=== PATIENT | male | born 1945 | race Caucasian/White ===

== ENCOUNTER 2020-11-11 10:08 | Inpatient (IN) ==
--- OUTSIDE RECORDS SUMMARY | 2020-11-11 10:11 | External Medical Summary | Continuity of Care Document ---
:1945 Author Name Domo Meng Address Unavailable Unavailable , Care Team Providers Name Role Phone Unavailable Unavailable Unavailable Carol Meng Unavailable [email or web address] PCP, UNKNOWN Unavailable Unavailable Unavailable Unavailable Unavailable Problems Glaucoma (365.9) (H40.9) Obesity (278.00) (E66.9) Asthma (493.90) (J45.909) Benign essential hypertension (401.1) (I10) Encounter for long-term (current) use of medications (V58.69 ) (Z79.899) Edema (782.3) (R60.9) Mixed hyperlipidemia (272.2) (E78.2) Abnormal glucose (790.29) (R73.09) Extrinsic asthma (493.00) (J45.909) Flank pain (789.09) (R10.9) Upper respiratory infection (465.9) (J06.9) Allergies and Adverse Reactions No Known Allergies (Allergy) Medications Metoprolol Tartrate 25 MG Oral Tablet; TAKE ONE TABLET BY MOUTH TWICE A DAY [facility] Start: 14-May-2012 Quantity: 60 Refills: 5 Triamterene-HCTZ 37.5-25 MG Oral Tablet; TAKE ONE-HALF TABLET BY MOUTH EVERY DAY [facility] Start: 14-May-2012 Quantity: 15 Refills: 6 Atorvastatin Calcium 20 MG Oral Tablet; TAKE ONE TABLET BY MOUTH EVERY EVENING FOR HIGH CHOLESTEROL [facility] Start: 14-May-2012 Quantity: 30 Refills: 5 Advair Diskus 100-50 MCG/DOSE Inhalation Aerosol Powder Breath Activated; INHALE ONE PUFF BY MOUTH TWICE A DAY [facility] Start: 14-May-2012 Quantity: 60 Refills: 5 Combivent Respimat 20-100 MCG/ACT Inhala tion Aerosol Solution; ONE INHALATION 4 TIMES DAILY (MAX OF 6 INHALATIONS PER 24 HOURS) [facility] Start: 21-Apr-2013 Quantity: 1 4 GM Inhaler Refills: 5 Procedures History of Knee Surgery Status: Complete d Immunizations Pneumococcal polysaccharide vaccine, 23 valent On: 2011 Influenza On: 03-Sep-2012 9:53 Lot #: [id number], [employer] PA[employer]UR Td On: 2012 Influenza On: 01-Jul-2013 10:32 Lot #: [id number], [employer]OFI PA[employer]UR Social History - Smoking Status Never smoked tobacco Plan of Treatment Planned Observations Planned Goals not documented Results No Known Results Results not documented
--- OUTSIDE RECORDS SUMMARY | 2020-11-11 10:11 | External Medical Summary | Continuity of Care Document ---
:1945 Author Name Domo Meng Address Unavailable Unavailable , Care Team Providers Name Role Phone Unavailable Unavailable Unavailable Carol Meng Unavailable [email or web address] PCP, UNKNOWN Unavailable Unavailable Unavailable Unavailable Unavailable Problems Upper respiratory infection (465.9) (J06.9) Extrinsic asthma (493.00) (J45.909) Abnormal glucose (790.29) (R73.09) Mixed hyperlipidemia (272.2) (E78.2) Asthma (493.90) (J45.909) Obesity (278.00) (E66.9) Glaucoma (365.9) (H40.9) Edema (782.3) (R60.9) Flank pain (789.09) (R10.9) Encounter for long-term (current) use of medications (V58.69 ) (Z79.899) Benign essential hypertension (401.1) (I10) Allergies and Adverse Reactions No Known Allergies (Allergy) Medications Atorvastatin Calcium 20 MG Oral Tablet; TAKE [...] [facility] Start: 14-May-2012 Quantity: 15 Refills: 6 Combivent Respimat 20-100 MCG/ACT Inhala tion Aerosol Solution; ONE INHALATION 4 TIMES DAILY (MAX OF 6 INHALATIONS PER 24 HOURS) [facility] Start: 21-Apr-2013 Quantity: 1 4 GM Inhaler Refills: 5 Metoprolol Tartrate 25 MG Oral Tablet; TAKE ONE TABLET BY MOUTH TWICE A DAY [facility] Start: 14-May-2012 Quantity: 60 Refills: 5 Procedures History of Knee Surgery Status: Complete d Immunizations Pneumococcal polysaccharide vaccine, 23 valent On: 2011 Influenza On: 03-Sep-2012 9:53 Lot #: [id number], SANOFI PASTEUR Td On: 2012 Influenza On: 01-Jul-2013 10:32 Lot #: [id number], SANOFI PA[employer]UR Social History - Smoking Status Never smoked tobacco Plan of Treatment Planned Observations Planned Goals not documented Results No Known Results Results not documented
[2020-11-11] MEDS ORDERED: GLUCAGON FOR INJ 1 MG VIAL ONE ×2 (10:30→10:31)
[2020-11-11] MEDS ORDERED: GLUCAGON 2 MG in SYRINGE 0 ML IV STA (10:31)
--- NOTE | 2020-11-11 10:37 | Emergency Department Note ---
History of Present Illness General Chief complaint: Arrhythmia/Palpitations Stated complaint: HEART RATE DOWN DIZZY Source: patient Mode of arrival: ambulatory Limitations: no limitations History of Present Illness Provider complaint: dizziness Onset (ago): day(s) 2 Associated symptoms: + malaise This is a 75-year-old male presents the emergency department complaining of dizziness and low heart rate. Patient states he first noticed he felt dizzy and more easily fatigued 2 days ago when he was cleaning the snow off of his car. Patient states he felt initially it could be related to his sugar so he checked his sugar at home and it was normal. Patient states over the last 2 days he has been trying to rest, still eating and drinking normally taking his usual medications however his symptoms have persisted. States his symptoms are worse with standing and with ambulation. Patient denies any falls or any syncopal events. Patient denies any recent illness or known sick contact. Patient denies any coming chest pain, palpitations, trouble breathing, nausea, vomiting, abdominal pain. Patient denies any recent change in bowel or bladder function. Patient states he does not routinely follow with cardiology, has never been told he had a heart attack or congestive heart failure. Patient states he does take medication for blood pressure and on review of his list he is using metoprolol among other agents. Patient states he did take all of his usual medications as prescribed this morning including a dose of his metoprolol. Patient denies ever being told his heart rate was slow or even irregular. Patient states he has had prior EKGs as performed with his PCP as an outpatient. Pt seen during a time of high acuity and national emergency pandemic while wearing PPE. Home Medications Medication Instructions Recorded Confirmed Type atorvastatin [Lipitor] 40 mg PO HS 10/04/18 11/11/20 History losartan 25 mg PO QAM 10/04/18 11/11/20 History metformin 500 mg PO BID 10/04/18 11/11/20 History metoprolol tartrate [Lopressor] 25 mg PO BID 10/04/18 11/11/20 History tamsulosin [Flomax] 0.4 mg PO HS 10/04/18 11/11/20 History Panax, Barbadian [id number] 1 cap PO Q2D 11/11/20 11/11/20 History [Ginseng Complex] calcium carbonate [Calcium 500] 0 mg PO HS 11/11/20 11/11/20 History hydrochlorothiazide 25 mg PO QAM 11/11/20 11/11/20 History latanoprost 1 drp OPB HS 11/11/20 11/11/20 History Allergies Allergy/AdvReac Type Severity Reaction Status Date / Time No Known Allergies Allergy Verified 11/11/20 11:43 Past Med/Surg History Medical History BPH (benign prostatic hyperplasia) Diabetes Dyslipidemia Hypertension Morbid obesity Surgical History H/O inguinal hernia repair Family History Mother Coronary heart disease Social History Smoking Status: Former smoker Tobacco Type: Cigarettes Hx Alcohol Use: Yes Alcohol type: beer Hx Substance Use: No Preferred Language: Kittitian Communication Ability: Effective Court Commissioner Required: No Beliefs That Will Affect Care: None Current Living Situation: Spouse Feels Safe at Home: Yes Assistive Devices: Cane Review of Systems See HPI for pertinent positives & negatives. and A total of 10 systems reviewed and were otherwise negative Physical Exam Vital Signs Vital Signs - 24 hr 11/11/20 10:14 11/11/20 10:25 11/11/20 10:30 Temperature 37.0 C Temperature Source Skin Pulse Rate 37 L 34 L 39 L Respiratory Rate 20 17 21 Respiratory Effort / Characteristics Non-Labored Spontaneous Respiratory Depth Normal Respiratory Pattern Regular Blood Pressure 130/58 L 145/73 H Blood Pressure Mean 82 97 Pulse Oximetry 96 Oxygen Delivery Method Room Air Sepsis Recent Fever Within 48 Hours No Sepsis New/Unexplained Change in Mental Status N/A Sepsis Action Taken by Nursing No Action Required 11/11/20 10:31 11/11/20 10:33 Temperature Temperature Source Pulse Rate 38 L Respiratory Rate 18 Respiratory Effort / Characteristics Respiratory Depth Respiratory Pattern Blood Pressure Blood Pressure Mean Pulse Oximetry 94 Oxygen Delivery Method Room Air Sepsis Recent Fever Within 48 Hours Sepsis New/Unexplained Change in Mental Status Sepsis Action Taken by Nursing GENERAL: alert, well appearing, well nourished, no distress, non-toxic, morbid obesity EYE EXAM: normal conjunctiva, PERRL and EOM's grossly intact OROPHARYNX: no exudate, no erythema, lips, buccal mucosa, and tongue normal and mucous membranes are moist NECK: supple, no nuchal rigidity, no adenopathy, non-tender LUNGS: Clear to auscultation. Normal chest wall mechanics, no w/r/r HEART: no murmurs, S1 normal and S2 normal ABDOMEN: abdomen soft, non-tender, normo-active bowel sounds, no masses, no rebound or guarding. BACK: Back is symmetrical on inspection and there is no deformity, no midline tenderness, no CVA tenderness. SKIN: no rashes and no bruising UPPER EXTREMITIES: upper extremities are grossly normal. FROM, nml pulses b/l. LOWER EXTREMITIES: Trace pitting edema. FROM, nml pulses b/l. NEURO EXAM: Normal sensorium, cranial nerves II-XII grossly intact, normal speech, no gross weakness of arms, no gross weakness of legs. Gross sensation intact. Course Course 1022: HR 30's, BP stable. Pacer pads in place, glucagon given, IVF hung. 1032: Case discussed with cardiology, Dr. Gabriel. 1035: Patient updated on plan at this time. HR 41, BP stable. No change after glucagon. 1040: Discussed with [facility], Dr. Olivo. 1048: Pt re-checked. No change. Administered Medications Atorvastatin Calcium (Atorvastatin 40 Mg Tab) 40 mg PO HS LEONORA Stop: 12/11/20 20:59 Last Admin: 11/11/20 21:35 Dose: 40 mg Documented by: [id number] Heparin Sodium (Porcine) (Heparin Sod 5,000 Unit/0.5 Ml Vial) 7,500 units SQ Q12 LEONORA Stop: 12/11/20 20:59 Last Admin: 11/12/20 08:17 Dose: 7,500 units Documented by: [id number] Admin: 11/11/20 21:36 Dose: 7,500 units Documented by: [id number] Lactated Ringer's (Lr) 1,000 mls @ 15 mls/hr IV .Q24H LEONORA Stop: 11/14/20 08:54 Last Admin: 11/12/20 13:30 Dose: Not Given Documented by: [id number] Admin: 11/11/20 16:29 Dose: Not Given Documented by: [id number] Insulin Aspart (Insulin Aspart 100 Units/Ml 3 Ml Pen) 0 units SC ACHS [facility] Stop: 12/11/20 16:29 Last Admin: 11/12/20 16:31 Dose: Not Given Documented by: [id number] Admin: 11/12/20 12:19 Dose: Not Given Documented by: [id number] Admin: 11/12/20 07:35 Dose: Not Given Documented by: [id number] Admin: 11/11/20 21:34 Dose: Not Given Documented by: [id number] Cosigned by: [id number] Admin: 11/11/20 17:09 Dose: Not Given Documented by: [id number] Magnesium Oxide (Magnesium Oxide 400 Mg Tab) 400 mg PO QAM [facility] Stop: 12/12/20 13:44 Last Admin: 11/12/20 14:48 Dose: 400 mg Documented by: [id number] Tamsulosin HCl (Tamsulosin Hcl 0.4 Mg Cap) 0.4 mg PO HS [facility] Stop: 12/11/20 20:59 Last Admin: 11/11/20 21:35 Dose: 0.4 mg Documented by: [id number] Discontinued Medications Bacitracin (Bacitracin Inj 50,000 Unit Vial) Confirm Administered Dose 50,000 units .ROUTE .STK-MED ONE Stop: 11/11/20 14:03 Last Admin: 11/11/20 14:30 Dose: 50,000 units Documented by: [id number] Bacitracin (Bacitracin Oint 0.9 Gm Pkt) Confirm Administered Dose 1 appln .ROUTE .STK-MED ONE Stop: 11/11/20 16:12 Last Admin: 11/11/20 16:29 Dose: Not Given Documented by: [id number] Cefazolin Sodium (Cefazolin 250 Mg/Ml 1 Gm Vial) Confirm Administered Dose 3,000 mg .ROUTE .STK-MED ONE Stop: 11/11/20 13:55 Last Admin: 11/11/20 14:30 Dose: 3,000 mg Documented by: [id number] Cefazolin Sodium (Cefazolin 250 Mg/Ml 1 Gm Vial) 2,000 mg IV PREOP@1430 [facility]; Protocol Stop: 11/11/20 23:59 Last Admin: 11/11/20 16:29 Dose: Not Given Documented by: [id number] Fentanyl Citrate (Fentanyl Citrate 100 Mcg/2 Ml Vial) Confirm Administered Dose 100 mcg .ROUTE .STK-MED ONE Stop: 11/11/20 13:54 Last Admin: 11/11/20 16:08 Dose: 100 mcg Documented by: [id number] Fentanyl Citrate (Fentanyl Citrate 100 Mcg/2 Ml Vial) Confirm Administered Dose 100 mcg .[address] .[facility] ONE Stop: 11/11/20 15:27 Last Increment: 11/11/20 16:09 Dose: 50 mcg Documented by: [id number] Furosemide (Furosemide 40 Mg/4 Ml Vial) 40 mg IV 1345 ONE Stop: 11/11/20 13:46 Last Admin: 11/11/20 17:09 Dose: 40 mg Documented by: [id number] Furosemide (Furosemide 40 Mg/4 Ml Vial) Confirm Administered Dose [address] ONE Stop: 11/11/20 17:05 Last Admin: 11/11/20 17:14 Dose: Not Given Documented by: [id number] Furosemide (Furosemide 40 Mg/4 Ml Vial) Confirm Administered Dose [address] ONE Stop: 11/12/20 13:46 Last Admin: 11/12/20 13:49 Dose: 40 mg Documented by: [id number] Glucagon (Glucagon For Inj 1 Mg Vial) Confirm Administered Dose 1 mg .ROUTE .[facility] ONE Stop: 11/11/20 10:31 Last Admin: 11/11/20 10:32 Dose: 1 mg Documented by: [id number] Glucagon (Glucagon For Inj 1 Mg Vial) Confirm Administered Dose 1 mg .ROUTE .[facility] ONE Stop: 11/11/20 10:32 Last Admin: 11/11/20 10:32 Dose: 1 mg Documented by: [id number] Glucagon 2 mg/ Syringe 2 mls @ 1 mls/min IV NOW STA Stop: 11/11/20 10:32 Last Admin: 11/11/20 10:37 Dose: Not Given Documented by: [id number] Furosemide 40 mg/ Syringe 4 mls @ 4 mls/min IV ONE ONE Stop: 11/12/20 14:16 Last Admin: 11/12/20 13:49 Dose: Not Given Documented by: [id number] Lidocaine HCl (Lidocaine Hcl 1% 20 Ml Vial) Confirm Administered Dose 40 ml .ROUTE .[facility] ONE Stop: 11/11/20 14:02 Last Admin: 11/11/20 14:30 Dose: 40 ml Documented by: [id number] Midazolam HCl (Midazolam Hcl 5 Mg/Ml 1 Ml Vial) Confirm Administered Dose 5 mg .ROUTE .STK-MED ONE Stop: 11/11/20 13:54 Last Increment: 11/11/20 16:08 Dose: 2 mg Documented by: [id number] Potassium Chloride (Potassium Chloride Crtab 20 Meq Tabcr) 40 meq PO NOW STA Stop: 11/12/20 13:38 Last Admin: 11/12/20 14:48 Dose: 40 meq Documented by: [id number] Critical Care Time Critical Care Time: Yes Total Critical Care Time: 35 Critical care of 35 min performed to assess and manage high likelihood of life- threatening dysrhythmia, involving labs and imaging performed with assessment to evaluate dysrhythmia diagnosis with frequent reassessment. This time includes bedside time, treatment discussions with patient/family/consultants, documentation time and excludes procedure time. Medical Decision Making Differential Diagnosis Differential diagnosis includes etiologies such as benign positional vertigo, dehydration, hypovolemia, anemia, tumor, infection, hypoglycemia, electrolyte abnormalities, cardiac sources, intracerebral event, toxicologic, neurologic, as well as others were entertained. Medical Records Attestation: I reviewed the patient's medical records. Home Medications Current Medication List: was personally reviewed by me Laboratory Data Attestation: I reviewed the patient's lab results. Result diagrams: 11/11/20 10:27 11/12/20 06:35 Lab Results 11/11/20 11/11/20 11/11/20 Range/Units 10:27 10:27 10:27 WBC 8.06 (4.8-10.8) K/uL RBC 5.19 (4.7-6.1) M/uL Hgb 15.6 (14.0-18.0) g/dL Hct 46.6 (42-52) % MCV 89.8 (80-100) fL MCH 30.1 (25-34) pg MCHC 33.5 (32-36) g/dL RDW Std Deviation 50.2 H (36.4-46.3) fL RDW Coeff of Palak 15.2 H (11.5-14.5) % Plt Count 185 (130-400) K/uL MPV 10.8 H (7.4-10.4) fL Immature Gran % (Auto) 0.2 % Neut % (Auto) 52.6 % Lymph % (Auto) 37.8 % Cocke % (Auto) 8.4 % Eos % (Auto) 0.9 % Baso % (Auto) 0.1 % Neut # (Auto) 4.23 (1.4-6.5) K/uL Lymph # (Auto) 3.05 (1.2-3.4) K/uL Cocke # (Auto) 0.68 H (0.11-0.59) K/uL Eos # (Auto) 0.07 (0-0.5) K/uL Baso # (Auto) 0.01 (0-0.2) K/uL Immature Gran # (Auto) 0.02 (0.00-0.02) K/uL PT 10.6 (9.0-12.0) Seconds INR 1.0 (0.9-1.1) Sodium 140 (136-145) mmol/L Potassium 3.7 (3.5-5.1) mmol/L Chloride 104 (98-107) mmol/L Carbon Dioxide 31 (21-32) mmol/L Anion Gap 5.0 (3-11) BUN 21 H (7-18) mg/dl Creatinine 1.29 (0.6-1.4) mg/dl Est Cr Clr Drug Dosing 70.1 ml/min Est GFR ( Amer) 62.0 Est GFR (Non-Af Amer) 53.5 BUN/Creatinine Ratio 16.5 (10-20) Glucose 158 H (70-99) mg/dl POC Glucose (70-99) mg/dl Calcium 8.9 (8.5-10.1) mg/dl Magnesium 2.1 (1.8-2.4) mg/dl Total Bilirubin 0.9 (0.2-1) mg/dl AST 16 (15-37) U/L ALT 39 (12-78) U/L Alkaline Phosphatase 65 (45-117) U/L Troponin I 0.016 (0-0.045) ng/ml NT-Pro-B Natriuret Pep 595 (0-1800) pg/ml Total Protein 7.4 (6.4-8.2) gm/dl Albumin 3.6 (3.4-5.0) gm/dl Globulin 3.8 (2.5-4.0) gm/dl Albumin/Globulin Ratio 0.9 (0.9-2) Lipase 70 L (73-393) U/L TSH 2.290 (0.300-4.500) uIu/ml Lyme Disease IgG Ab (Negative) Lyme Disease IgM Ab (Negative) COVID-19 Eval Order SARS-CoV-2, RNA, NAAT (NEGATIVE) 11/11/20 11/11/20 11/11/20 Range/Units 10:27 10:31 10:40 WBC (4.8-10.8) K/uL RBC (4.7-6.1) M/uL Hgb (14.0-18.0) g/dL Hct (42-52) % MCV (80-100) fL MCH (25-34) pg MCHC (32-36) g/dL RDW Std Deviation (36.4-46.3) fL RDW Coeff of Palak (11.5-14.5) % Plt Count (130-400) K/uL MPV (7.4-10.4) fL Immature Gran % (Auto) % Neut % (Auto) % Lymph % (Auto) % Cocke % (Auto) % Eos % (Auto) % Baso % (Auto) % Neut # (Auto) (1.4-6.5) K/uL Lymph # (Auto) (1.2-3.4) K/uL Cocke # (Auto) (0.11-0.59) K/uL Eos # (Auto) (0-0.5) K/uL Baso # (Auto) (0-0.2) K/uL Immature Gran # (Auto) (0.00-0.02) K/uL PT (9.0-12.0) Seconds INR (0.9-1.1) Sodium (136-145) mmol/L Potassium (3.5-5.1) mmol/L Chloride (98-107) mmol/L Carbon Dioxide (21-32) mmol/L Anion Gap (3-11) BUN (7-18) mg/dl Creatinine (0.6-1.4) mg/dl Est Cr Clr Drug Dosing ml/min Est GFR ( Amer) Est GFR (Non-Af Amer) BUN/Creatinine Ratio (10-20) Glucose (70-99) mg/dl POC Glucose 149 H (70-99) mg/dl Calcium (8.5-10.1) mg/dl Magnesium (1.8-2.4) mg/dl Total Bilirubin (0.2-1) mg/dl AST (15-37) U/L ALT (12-78) U/L Alkaline Phosphatase (45-117) U/L Troponin I (0-0.045) ng/ml NT-Pro-B Natriuret Pep (0-1800) pg/ml Total Protein (6.4-8.2) gm/dl Albumin (3.4-5.0) gm/dl Globulin (2.5-4.0) gm/dl Albumin/Globulin Ratio (0.9-2) Lipase (73-393) U/L TSH (0.300-4.500) uIu/ml Lyme Disease IgG Ab Negative (Negative) Lyme Disease IgM Ab Negative (Negative) COVID[facility] SARS-CoV-2, RNA, NAAT (NEGATIVE) 11/11/20 Range/Units 10:40 WBC (4.8-10.8) K/uL RBC (4.7-6.1) M/uL Hgb (14.0-18.0) g/dL Hct (42-52) % MCV (80-100) fL MCH (25-34) pg MCHC (32-36) g/dL RDW Std Deviation (36.4-46.3) fL RDW Coeff of Palak (11.5-14.5) % Plt Count (130-400) K/uL MPV (7.4-10.4) fL Immature Gran % (Auto) % Neut % (Auto) % Lymph % (Auto) % Cocke % (Auto) % Eos % (Auto) % Baso % (Auto) % Neut # (Auto) (1.4-6.5) K/uL Lymph # (Auto) (1.2-3.4) K/uL Cocke # (Auto) (0.11-0.59) K/uL Eos # (Auto) (0-0.5) K/uL Baso # (Auto) (0-0.2) K/uL Immature Gran # (Auto) (0.00-0.02) K/uL PT (9.0-12.0) Seconds INR (0.9-1.1) Sodium (136-145) mmol/L Potassium (3.5-5.1) mmol/L Chloride (98-107) mmol/L Carbon Dioxide (21-32) mmol/L Anion Gap (3-11) BUN (7-18) mg/dl Creatinine (0.6-1.4) mg/dl Est Cr Clr Drug Dosing ml/min Est GFR ( Amer) Est GFR (Non-Af Amer) BUN/Creatinine Ratio (10-20) Glucose (70-99) mg/dl POC Glucose (70-99) mg/dl Calcium (8.5-10.1) mg/dl Magnesium (1.8-2.4) mg/dl Total Bilirubin (0.2-1) mg/dl AST (15-37) U/L ALT (12-78) U/L Alkaline Phosphatase (45-117) U/L Troponin I (0-0.045) ng/ml NT-Pro-B Natriuret Pep (0-1800) pg/ml Total Protein (6.4-8.2) gm/dl Albumin (3.4-5.0) gm/dl Globulin (2.5-4.0) gm/dl Albumin/Globulin Ratio (0.9-2) Lipase (73-393) U/L TSH (0.300-4.500) uIu/ml Lyme Disease IgG Ab (Negative) Lyme Disease IgM Ab (Negative) COVID-19 Eval Order SARS-CoV-2, RNA, NAAT NEGATIVE (NEGATIVE) Imaging Data Radiologist's Impression: XR chest 1V portable CLINICAL HISTORY: dizzy, bradycardic COMPARISON STUDY: Chest radiograph November 27, 2011. FINDINGS: Lung volumes are normal. There is no pneumothorax or pleural effusion. There are mild bibasilar opacities. Cardiomegaly is noted without evidence for pulmonary edema. There is no lobar consolidation. IMPRESSION: 1. Mild bibasilar opacities which may reflect atelectasis or an infectious process. Radiographic follow-up is recommended. 2. Moderate cardiomegaly. ACT 112: Negative or not required by law. Electronically signed by: Kevin Arreguin M.D. 11/11/2020 10:58 AM ECG Data Attestation: I personally reviewed and interpreted this ECG as follows: Indication: + other (dizziness) Rate (beats per minute): 39 Rhythm: + other ECG Intervals/blocks: + Complete heart block, + IVCD and + Prolonged QT ECG [place]: + Normal ECG ST segments: + Nonspecific ST abnormalities MDM Narrative This is a 75 yo male who presents due to increased CARRILLO and fatigue over the last 2-3 days. Pt found to have a HR in the 30's on arrival and was immediately placed in a room. IV was started, pacer pads placed on the patient, IVF hung, EKG performed which showed complete heart block. During my initial assessment of the patient we discussed meds and due to use of metoprolol, glucagon immediately called for as well. BP remained stable despite HR in the 30's and pt stated he was less symptomatic at rest. Labs sent including tsh and lyme. Pt with multiple risk factors for heart disease, however no known cardiac history. Case immediately discussed with personal banker cardiology for additional e valuation. Pt rechecked multiple times as a precaution due to unstable nature of his condition and risk of deterioration. Pt continued to have a stable BP while in the ER. Case discussed with hospitalist for additional evaluation. I do not suspect occult infectious etiology. Labs otherwise reassuring. No improvement in HR with glucagon. An order was placed for continuous cardiac monitoring. The monitor shows a rate of _40_ with _complete heart block__ rhythm. Impression & Plan CARRILLO (dyspnea on exertion), Morbid obesity, Symptomatic bradycardia, Complete heart block by electrocardiogram Discharge Plan Visit Data Chief Complaint: Arrhythmia/Palpitations Stated Complaint: HEART RATE DOWN DIZZY ED Provider: Jyoti Kim Discharge Problem: CARRILLO (dyspnea on exertion), Morbid obesity, Symptomatic bradycardia, Complete heart block by electrocardiogram Patient Disposition: Admitted As Inpatient Discharge Instructions Interventions: ED Discharge Assessment Last Done: 11/11/20 13:04
[2020-11-11 10:46] LABS: Basophils # (auto) 0.01 K/uL (0-0.2); Basophils % (auto) 0.1 %; Eosinophils # (auto) 0.07 K/uL (0-0.5); Eosinophils % (auto) 0.9 %; Hematocrit (blood only) 46.6 % (42-52); Hemoglobin 15.6 g/dL (14.0-18.0); Immature Granulocytes # (auto) 0.02 K/uL (0.00-0.02); Immature Granulocytes % (auto) 0.2 %; Lymphocytes # (auto) 3.05 K/uL (1.2-3.4); Lymphocytes % (auto) 37.8 %; Mean Corpuscular Hemoglobin 30.1 pg (25-34); Mean Corpuscular Hgb Conc 33.5 g/dL (32-36); Mean Corpuscular Volume 89.8 fL (80-100); Mean Platelet Volume 10.8 fL (7.4-10.4); Monocytes # (auto) 0.68 K/uL (0.11-0.59); Monocytes % (auto) 8.4 %; Neutrophils # (auto) 4.23 K/uL (1.4-6.5); Neutrophils % (auto) 52.6 %; Platelet Count 185 K/uL (130-400); RDW Coefficient of Variation 15.2 % (11.5-14.5); RDW Standard Deviation 50.2 fL (36.4-46.3); Red Blood Count 5.19 M/uL (4.7-6.1); White Blood Count 8.06 K/uL (4.8-10.8)
[2020-11-11 10:55] LABS: Prothrombin Time 10.6 Seconds (9.0-12.0)
[2020-11-11 10:56] LABS: Albumin Level 3.6 gm/dl (3.4-5.0); BUN Creatinine Ratio 16.5 (10-20); Calcium 8.9 mg/dl (8.5-10.1); Creatinine Clr Calc Pharmacy 70.1 ml/min; Est GFR (Non-African American) 53.5; Magnesium 2.1 mg/dl (1.8-2.4); Potassium 3.7 mmol/L (3.5-5.1)
--- NOTE | 2020-11-11 10:59 | XRay Report ---
XR chest 1V portable CLINICAL HISTORY: dizzy, bradycardic COMPARISON STUDY: Chest radiograph November 27, 2011. FINDINGS: Lung volumes are normal. There is no pneumothorax or pleural effusion. There are mild bibas ilar opacities. Cardiomegaly is noted without evidence for pulmonary edema. There is no lobar consoli dation. IMPRESSION: 1. Mild bibasilar opacities which may reflect atelectasis or an infectious process. Radiographic foll ow-up is recommended. 2. Moderate cardiomegaly. ACT 112: Negative or not required by law. Electronically signed by: Kevin Arreguin M.D. 11/11/2020 10:58 AM
[2020-11-11 11:07] LABS: Albumin Globulin Ratio 0.9 (0.9-2); Bilirubin,Total 0.9 mg/dl (0.2-1); Globulin 3.8 gm/dl (2.5-4.0); Thyroid Stimulating Hormone 2.29 uIu/ml (0.300-4.500); Total Protein 7.4 gm/dl (6.4-8.2); Troponin I 0.016 ng/ml (0-0.045)
--- NOTE | 2020-11-11 11:17 | History & Physical Report ---
Date of Service November 11, 2020 Assessment & Plan (1) Symptomatic bradycardia: Symptomatic bradycardia of undetermined etiology. On admission currently Lyme TSH are pending. Glucagon did not help. We will hold his beta-jacques at this time. Electrophysiology be consulted. He will be on a monitored setting. Chest x-ray is some suggestion of possible pulmonary vascular congestion. We will give him a dose of Lasix and obtain an echocardiogram. (2) Hypertension: Patient typically takes losartan and Lopressor. His antihypertensives will be held on admission and if need be will add back his losartan. His losartan is likely also for secondary diabetic nephropathy protection (3) Diabetes: Typically only taking Metformin. He will be on a carbohydrate conservative diet Metformin will be held and insulin sliding scale will be initiated (4) Dyslipidemia: Atorvastatin is continued for dyslipidemia management (5) Morbid obesity: Patient has morbid obesity this likely will affect his comorbid risk factors (6) BPH (benign prostatic hyperplasia): Remains on Flomax (7) DVT prophylaxis: DVT prevention will be heparin therapy in hopes that its half-life will be short enough if he would need an invasive procedure this can be held History of Present Illness Primary Care Provider: Chi Soriano MD 75-year-old male typically following the [place] [facility] who presents with shortness of breath for last few days first noticed when he was cleaning his vehicle. Was not associate with any chest pain or pressure. Patient states he is finally sit still's but he is worsened when he moves about patient has had no recent medical changes but does take a beta-jacques. Patient has no known history of Lyme disease and has been tested 3 times in the past through the various tick bites. Patient states that he does have a tendency to retain fluid and is noted of late that he has may have more swelling to his lower extremities. Says he does take a water pill although this is not listed on his med reconciliation. Currently the emergency department his blood pressure stable his heart rate is in the 30s he was given glucagon in his attempt to reverse the beta-jacques but he did not have any effect on increasing his heart rate Allergies Allergy/AdvReac Type Severity Reaction Status Date / Time No Known Allergies Allergy Verified 10/04/18 14:10 Home Medications Medication Instructions Recorded Confirmed Type atorvastatin [Lipitor] 40 mg PO HS 10/04/18 10/04/18 History hydrocodone-acetaminophen [Morton] 1 tab PO Q4H PRN #15 tab 10/04/18 Rx losartan 12.5 mg PO DAILY 10/04/18 10/04/18 History metformin 500 mg PO BID 10/04/18 10/04/18 History metoprolol tartrate [Lopressor] 25 mg PO BID 10/04/18 10/04/18 History tamsulosin [Flomax] 0.4 mg PO HS 10/04/18 10/04/18 History tramadol 50 mg PO Q6H PRN #14 tab 10/04/18 Rx Past Med/Surg History Medical History (Updated 11/11/20 @ 11:16 by Miller Olivo MD) BPH (benign prostatic hyperplasia) Diabetes Dyslipidemia Hypertension Morbid obesity Surgical History (Updated 11/11/20 @ 11:11 by Miller Olivo MD) H/O inguinal hernia repair Family History (Updated 11/11/20 @ 11:11 by Miller Olivo MD) Mother Coronary heart disease Social History Smoking Status: Former smoker Tobacco Type: Cigarettes Feels Safe at Home: Yes Review of Systems Review of Systems: Mild distress and fatigue particularly dyspnea on exertion no headache, blurry or double vision no speech or swallowing issues no chest pain, pressure or palpitations Exertional shortness of breath, with no cough or wheezes no abdominal pain, nausea or vomiting, diarrhea or constipation no dysuria, hematuria or frequency no focal joint pain does have lower extremity swelling Does have generalized joint pain for which she takes pain medication no back pain, CVA tenderness or radicular pain no bruising, bleeding or rashes no focal signs of weakness or numbness or altered sensation no complaints of anxiety or depression.. Physical Exam Physical Exam: The patient appeared well nourished and normally developed. Patient is morbidly obese with a BMI of 41 Vital signs as documented. Head exam is normocephalic atraumatic no scleral icterus Neck is without JVD, thyromegaly, or carotid bruits. Lungs are clear to auscultation, no focal loss of breath sounds Cardiac exam, bradycardic and regular.. No murmurs, rubs or gallops. Abdominal exam reveals normal bowel sounds, soft non tender, no masses Extremities are 1+ edema bilaterally Neurologic exam is alert and oriented, no focal loss of strength or sensation Skin is without bruises or rashes Psychologically is without concerns for anxiety or depression Results & Data Results & Data ([facility]) Vital Signs (Past 12 Hours) Vital Signs Temp Pulse Resp BP Pulse Ox 11/11/20 10:33 94 11/11/20 10:31 38 L 18 11/11/20 10:30 39 L 21 145/73 H 11/11/20 10:25 34 L 17 11/11/20 10:14 98.6 F 37 L 20 130/58 L 96 chest x-ray shows mild bibasilar opacities which may reflect atelectasis EKG shows sinus bradycardia with inverted T waves laterally PG Care Time/CCT Total # of Minutes Spent Total Time Spent with Patient: Total time spent is greater than 50% in coordination of care (as documented) at patient's floor/unit and/or counseling patient: Coding Level of Care Code 45886 Initial Inpt Care Lvl 3 Diagnoses Symptomatic bradycardia R00.1 Hypertension I10 Diabetes E11.9 Dyslipidemia E78.5 Morbid obesity E66.01 BPH (benign prostatic hyperplasia) N40.0 DVT prophylaxis Z29.9
[2020-11-11 11:20] LABS: Lyme Ab IgG w/WB Rflx Negative (Negative); Lyme Ab IgM w/WB Rflx Negative (Negative)
--- NOTE | 2020-11-11 12:19 | Cardiology Consultation ---
Date of Consultation November 11, 2020 Assessment & Plan (1) Symptomatic bradycardia: He presents with difficulty with exertion and what appears to be predominantly complete heart block with some 2-1 AV conduction. His symptoms started several days ago, he has not had presyncope or syncope but feels poorly with exertion. His symptoms are most likely due to this bradycardia which is AV block. He is on low-dose metoprolol (25 mg twice a day) which could affect AV conduction however he is large and is on a low dose so it is unlikely this is the only cause of his heart block. It likely represents intrinsic AV ely disease. As such he will probably need a pacemaker, I do want to get an echocardiogram to make sure he does not have left ventricular dysfunction however before that determination. (2) Hypertension: He has a history of hypertension for which he is on metoprolol, here his blood pressure is on the low side, presumably due to his low heart rate. (3) Morbid obesity: He is quite overweight, he tells me his weight has been gradually increasing but not a lot lately. (4) CAD (coronary artery disease): He likely has coronary artery disease although he does not have symptoms of it. He does have infarct pattern on his electrocardiogram and has a lot of risk factors, the echo may help us with the extent of his disease if he has it. (5) Edema of both legs: He has bilateral edema which he feels has not changed recently and has been present for a number of years. He is on a diuretic for this. That evidently is not related to his heart block. History of Present Illness Reason for Consultation: AV block History of Present Illness This is a 75-year-old male with a history of asthma, obesity, diabetes mellitus, hypertension and dyslipidemia and chronic edema who has been doing relatively well lately so only [facility] and has not had any recent diagnostic tests. He has no cardiac history. He observed shortness of breath starting several days ago and has continued, he has felt very tired and fatigued when he tries to perform any activity but does not have lightheadedness, presyncope or syncope. He first noticed it when he was clearing snow off his car but has noticed it since with any type of activity. He denies chest discomfort either now or in the past, only shortness of breath. He came into the emergency room was noted to be in high-grade AV block with a heart rate in the 30s. His electrocardiogram shows an inferior infarct pattern with right bundle branch block, I believe there is some conduction with a similar morphology therefore this is unlikely to represent an escape rhythm. His heart rate is in the low 30s to 40 bpm. He is on metoprolol tartrate 25 mg twice a day which he did take this morning. At the time of evaluation he was resting comfortably in bed. At rest he has no specific complaints. Allergies Allergy/AdvReac Type Severity Reaction Status Date / Time No Known Allergies Allergy Verified 11/11/20 11:43 Home Medications Medication Instructions Recorded Confirmed Type atorvastatin [Lipitor] 40 mg PO HS 10/04/18 11/11/20 History losartan 25 mg PO QAM 10/04/18 11/11/20 History metformin 500 mg PO BID 10/04/18 11/11/20 History metoprolol tartrate [Lopressor] 25 mg PO BID 10/04/18 11/11/20 History tamsulosin [Flomax] 0.4 mg PO HS 10/04/18 11/11/20 History Panax, Tanzanian [id number] 1 cap PO Q2D 11/11/20 11/11/20 History [Ginseng Complex] calcium carbonate [Calcium 500] 0 mg PO HS 11/11/20 11/11/20 History hydrochlorothiazide 25 mg PO QAM 11/11/20 11/11/20 History latanoprost 1 drp OPB HS 11/11/20 11/11/20 History Patient History Medical History BPH (benign prostatic hyperplasia) Diabetes Dyslipidemia Hypertension Morbid obesity Surgical History H/O inguinal hernia repair Family History Mother Coronary heart disease Social History Smoking Status: Former smoker Tobacco Type: Cigarettes Feels Safe at Home: Yes Review of Systems Review of Systems: All systems reviewed & are unremarkable except as noted in HPI & below Physical Exam Physical Exam: Constitutional: Alert, cooperative and in no distress. HEENT: Unremarkable Neck: No jugular venous distention, carotid pulses are slow but otherwise normal and equal bilaterally without bruits. Pulmonary: Clear to auscultation bilaterally. Cardiac: Regular slow rhythm with no murmur, gallop or rub. Abdomen: Soft, nontender with normal bowel sounds. Extremities: +2 bilateral pretibial edema. Distal pulses intact. Neurologic: No focal findings. Gait was not tested. Skin: No rash, ecchymoses or petechiae. Results & Data ([facility]) Vital Signs (Past 12 Hours) Vital Signs Temp Pulse Resp BP Pulse Ox 11/11/20 11:31 33 L 19 124/62 96 11/11/20 11:30 55 L 20 96 11/11/20 11:02 36 L 15 138/56 L 96 11/11/20 11:00 33 L 14 95 11/11/20 10:46 33 L 15 132/62 96 11/11/20 10:45 33 L 13 95 11/11/20 10:37 34 L 16 125/55 L 91 11/11/20 10:33 94 11/11/20 10:31 38 L 18 11/11/20 10:30 39 L 21 145/73 H 11/11/20 10:25 34 L 17 11/11/20 10:14 37.0 C 37 L 20 130/58 L 96 Laboratory Results Cardiac Enzymes 11/11/20 Range/Units 10:27 AST 16 (15-37) U/L Troponin I 0.016 (0-0.045) ng/ml Coagulation 11/11/20 Range/Units 10:27 PT 10.6 (9.0-12.0) Seconds CBC 11/11/20 Range/Units 10:27 WBC 8.06 (4.8-10.8) K/uL RBC 5.19 (4.7-6.1) M/uL Hgb 15.6 (14.0-18.0) g/dL Hct 46.6 (42-52) % Plt Count 185 (130-400) K/uL Neut # (Auto) 4.23 (1.4-6.5) K/uL Lymph # (Auto) 3.05 (1.2-3.4) K/uL [place] # (Auto) 0.68 H (0.11-0.59) K/uL Eos # (Auto) 0.07 (0-0.5) K/uL Baso # (Auto) 0.01 (0-0.2) K/uL Comprehensive Metabolic Panel 11/11/20 Range/Units 10:27 Sodium 140 (136-145) mmol/L Potassium 3.7 (3.5-5.1) mmol/L Chloride 104 (98-107) mmol/L Carbon Dioxide 31 (21-32) mmol/L BUN 21 H (7-18) mg/dl Creatinine 1.29 (0.6-1.4) mg/dl Glucose 158 H (70-99) mg/dl Calcium 8.9 (8.5-10.1) mg/dl AST 16 (15-37) U/L ALT 39 (12-78) U/L Alkaline Phosphatase 65 (45-117) U/L Total Protein 7.4 (6.4-8.2) gm/dl Albumin 3.6 (3.4-5.0) gm/dl Intake and Output 11/10/20 11/11/20 11/11/20 22:59 06:59 14:59 Other: Weight 138 kg Patient Weight 11/12/20 06:59 Weight 138 kg Diagnostic Findings Telemetry: Predominantly complete heart block with what looks like brief periods of 2-1 AV block. No one-to-one conduction. Electrocardiogram in the emergency room demonstrates underlying sinus rhythm at 75 bpm with probably 2-1 AV block, and old inferior myocardial infarction pattern and right bundle branch block. Echo done in the ER: PG Care Time/CCT Total # of Minutes Spent Total Time Spent with Patient: Total time spent is greater than 50% in coordination of care (as documented) at patient's floor/unit and/or counseling patient: Coding Level of Care Code 03666 Initial Inpt Care Lvl 3 Diagnoses Symptomatic bradycardia R00.1 Hypertension I10 Hypertension type: essential hypertension Morbid obesity E66.01 CAD (coronary artery disease) I25.10 Edema of both legs R60.0 (1) Hypertension Hypertension type: essential hypertension Qualified Code(s): I10 - Essential (primary) hypertension
[2020-11-11] MEDS ORDERED: ONDANSETRON INJ 2 MG/ML 2 ML VIAL IV PRN (13:22)
[2020-11-11] MEDS ORDERED: HYDROCODONE/ACETAMOPHEN 5/325MG TAB PO PRN (13:22)
[2020-11-11] MEDS ORDERED: CARBOHYDRATES FOR HYPOGLYCEMIA PO PRN (13:22)
[2020-11-11] MEDS ORDERED: ALUMINUM/MAGNESIUM SUSP 30 ML UDC PO PRN (13:22)
[2020-11-11] MEDS ORDERED: ACETAMINOPHEN 325 MG TAB PO PRN (13:22)
[2020-11-11] MEDS ORDERED: GLUCOSE 40% GEL 15 GM TUBE PO PRN (13:22)
[2020-11-11] MEDS ORDERED: DEXTROSE 50% 50 ML SYRINGE IV PRN (13:22)
[2020-11-11] MEDS ORDERED: GLUCOSE 10 TABS/TUBE PO PRN (13:22)
[2020-11-11] MEDS ORDERED: GLUCAGON FOR INJ 1 MG VIAL SQ PRN (13:22)
[2020-11-11] MEDS ORDERED: FUROSEMIDE 40 MG/4 ML VIAL IV ONE ×2 (13:45→17:04)
[2020-11-11] MEDS ORDERED: MIDAZOLAM HCL 5 MG/ML 1 ML VIAL ONE (13:53)
[2020-11-11] MEDS ORDERED: fentaNYL citrate 100 MCG/2 ML VIAL ONE ×2 (13:53→15:26)
[2020-11-11] MEDS ORDERED: LIDOCAINE HCL 1% 20 ML VIAL ONE (14:01)
[2020-11-11] MEDS ORDERED: BACITRACIN INJ 50,000 UNIT VIAL ONE (14:02)
--- NOTE | 2020-11-11 14:24 | Pre Anesthesia Assessment ---
Date of Service November 11, 2020 Pre Sedation Assessment Vital Signs Temp Pulse Pulse Resp BP BP Pulse Ox 11/11/20 14:15 37 C 36 L 20 124/63 95 11/11/20 13:36 36.5 C 40 L 20 139/64 94 11/11/20 12:47 28 L 14 97 11/11/20 12:46 36 L 17 116/57 L 97 11/11/20 12:45 38 L 17 98 11/11/20 12:32 36 L 20 97 11/11/20 12:31 33 L 18 109/53 L 97 11/11/20 12:30 40 L 17 98 11/11/20 12:16 37 L 19 112/47 L 97 11/11/20 12:15 37 L 13 97 11/11/20 12:02 36 L 19 96 11/11/20 12:01 36 L 20 119/57 L 95 11/11/20 12:00 33 L 18 98 11/11/20 11:46 39 L 17 124/52 L 96 11/11/20 11:45 32 L 14 96 11/11/20 11:31 33 L 19 124/62 96 11/11/20 11:30 55 L 20 96 11/11/20 11:02 36 L 15 138/56 L 96 11/11/20 11:00 33 L 14 95 11/11/20 10:46 33 L 15 132/62 96 11/11/20 10:45 33 L 13 95 11/11/20 10:37 34 L 16 125/55 L 91 11/11/20 10:33 94 11/11/20 10:31 38 L 18 11/11/20 10:30 39 L 21 145/73 H 11/11/20 10:25 34 L 17 11/11/20 10:14 37.0 C 37 L 20 130/58 L 96 Cardiovascular + regular rate and + bradycardic Respiratory normal respiratory effort, lungs clear to auscultation Pre-Sedation Airway Assessment Smoking Status: Former smoker Hx Sleep Apnea: No Hx Difficult Intubation: No Short, Thick Neck: Yes Thyromental Distance: < 3.5 Finger Breadths Oral Cavity: + WNL Mallampati Class: III ASA: ASA3 NPO Status Date of Last Intake of Fluids: 11/11/20 Time of Last Intake of Fluids: 08:00 Date of Last Intake of Solid Food: 11/11/20 Time of Last Intake of Solid Foods: 08:00 Procedure Planning Contraindications for Sedation: none Current Medications Reviewed: Yes Notes The planned sedation has been discussed with the patient. Informed Consent was obtained. I have identified the patient, determined the appropriateness of sedation and have assessed the patient immediately prior to the procedure. All medicine(s) and interventions are by my order.
--- NOTE | 2020-11-11 15:43 | XCELERA ---
[id number]
[2020-11-11] MEDS ORDERED: BACITRACIN OINT 0.9 GM PKT ONE (16:11)
[2020-11-11] MEDS ORDERED: KETOROLAC TROMETHAMINE 10 MG TABLET PO PRN (16:26)
--- NOTE | 2020-11-11 16:26 | Electrophysiology Report ---
Date of Service November 11, 2020 Electrophysiology Procedure Electrophysiology Procedure Report Preoperative diagnosis: Complete heart block Postoperative diagnosis: Same Procedure: Dual-chamber pacemaker implantation Surgeon: Lyle Gabriel MD Estimated blood loss: 50 cc Complications: None Disposition: Managed Care Nurse recovery Procedure details: After obtaining informed consent for the procedure, the patient was brought to the laboratory and prepped and draped in the standard s terile manner. Dye was injected the left arm IV site to opacify the left subclavian vein. The subclavian vein was identified and found to be free of obstruction however it was quite tortuous and high up on the chest wall due to his size. The left prepectoral region was anesthetized with 1% lidocaine local anesthetic and left axillary venipuncture was performed by percutaneous technique and a guidewire placed through the left subclavian vein into the superior vena cava. The area was further infiltrated with 1% lidocaine local anesthetic and a 6 cm incision was made parallel to the left clavicle and 2 cm below it and carried down to the anterior pectoralis fascia. A pacemaker pocket was formed by blunt dissection anterior to the pectoralis fascia and a bacitracin-soaked sponge (50,000 units in 50 cc normal saline solution) was placed in the pocket. An 8 Romanian Medtronic lead introducer was placed over the guidewire into the left subclavian vein, the dilator and guidewire were removed and a bipolar active fixation steroid tipped ventricular lead was advanced through the introducer into the superior vena cava. A guidewire was placed through the introducer and the introducer was stripped from the lead and guidewire. Another 8 Romanian Medtronic lead introducer was placed over the guidewire into the left subclavian vein, the dilator and guidewire were removed and a bipolar active fi xation steroid tipped atrial lead was advanced through the introducer into the superior vena cava. A guidewire was placed back through the introducer and the introducer was stripped from the lead and guidewire. Using a curved stylette the ventricular lead was advanced through the right ventricular outflow tract into the pulmonary artery and then using a straight stylette was positioned in the right ventricular apex. The screw was extended fixing the lead in position. Due to left subclavian tortuosity positioning was difficult and initial thresholds were not good. After several attempts this lead was removed, another 8 Romanian Medtronic lead introducer was placed over the guidewire into the left subclavian vein and then the lead was reintroduced through the introducer and positioned with the introducer in place. A position higher up on the right ventricular wall was chosen, approaching right ventricular outflow tract. Pacing and sensing thresholds were evaluated in bipolar configuration and are recorded on the implant data sheet. Using a curved stylette the atrial lead was positioned in the region of the atrial appendage and the screw extended fixing the lead in position. Pacing and sensing thresholds were evaluated in bipolar configuration and are recorded on the implant data sheet. Once the leads were in position they were attached to the anterior pectoralis fascia using 2 sutures of 2-0 silk around each lead collar. The bacitracin- soaked sponge was removed from the pocket, hemostasis was obtained, the pacemaker was attached to the leads and placed in the pocket with the leads coiled beneath it. The incision was closed with a running double subcutaneous closure of 3-0 Vicryl absorbable suture, followed by running subcuticular skin closure of 4-0 Vicryl absorbable suture. Bacitracin ointment was placed on the incision and a dressing applied. [facility] Electrophysiology codes Indication for Procedure (1) Complete heart block by electrocardiogram: Pacing Procedure 1: Pacin Insert/Replace Pacer A & V Miscellaneous Procedures Procedure 1: EP Miscellaneous: 70377 Contrast injection for venography Procedure 2: EP Miscellaneous: 56317-28 Vengraphy, extremity PG Moderate Sedation Codes Moderate Sedation Codes Procedure 1: Sedation/Anesthesia: 38334 Mod Sedation by the same physician;Init15 Min Child Age 5 & Up Procedure 2: Sedation/Anesthesia: 44020 Mod Sedation by the same physician; Ea [id number] Minutes
[2020-11-11] MEDS: LACTATED RINGER'S 1,000 ML IV SCH (16:29)
[2020-11-11] MEDS: INSULIN ASPART 100 UNITS/ML 3 ML PEN SC SCH ×2 (17:09→21:34)
--- NOTE | 2020-11-11 17:47 | Post Anesthesia Assessment ---
Date of Service November 11, 2020 Post Sedation Assessment Vital Signs Temp Pulse Pulse Resp BP BP Pulse Ox 11/11/20 16:56 36.7 C 73 18 124/73 90 11/11/20 16:41 36.5 C 64 18 144/75 H 90 11/11/20 16:00 32 L 11/11/20 14:15 37 C 36 L 20 124/63 95 11/11/20 13:36 36.5 C 40 L 20 139/64 94 11/11/20 12:47 28 L 14 97 11/11/20 12:46 36 L 17 116/57 L 97 11/11/20 12:45 38 L 17 98 11/11/20 12:32 36 L 20 97 11/11/20 12:31 33 L 18 109/53 L 97 11/11/20 12:30 40 L 17 98 11/11/20 12:16 37 L 19 112/47 L 97 11/11/20 12:15 37 L 13 97 11/11/20 12:02 36 L 19 96 11/11/20 12:01 36 L 20 119/57 L 95 11/11/20 12:00 33 L 18 98 11/11/20 11:46 39 L 17 124/52 L 96 11/11/20 11:45 32 L 14 96 11/11/20 11:31 33 L 19 124/62 96 11/11/20 11:30 55 L 20 96 11/11/20 11:02 36 L 15 138/56 L 96 11/11/20 11:00 33 L 14 95 11/11/20 10:46 33 L 15 132/62 96 11/11/20 10:45 33 L 13 95 11/11/20 10:37 34 L 16 125/55 L 91 11/11/20 10:33 94 11/11/20 10:31 38 L 18 11/11/20 10:30 39 L 21 145/73 H 11/11/20 10:25 34 L 17 11/11/20 10:14 37.0 C 37 L 20 130/58 L 96 Discharge Sedation Level of Care: Fast Track Phase II Post Sedation Plan On clinical assessment, the patient appears to have tolerated the sedation without complications. Patient is recovering as anticipated. Patient will continue to be monitored by nursing and may be discharged when sedation discharge criteria are met per below protocol. Upon Completions of procedure up to 15 minutes continue every 5 minute vital signs and the P.A.R. score; then discharge to a Phase I or Fast Track to Phase II per the following guidelines: * Discharge Patient to appropriate Phase II area if PAR is 8 or greater or return to pre- procedure baseline. The post - procedure orders will be as directed. * If PAR score is less than 8 or not return to pre-procedure baseline then patient will follow Phase I monitoring till PAR is reached for Phase II. The Phase I may be done in procedure room or may call to secure a Phase I area. * If naloxone or flumazenil are used for reversal, hold in Phase I for continued monitoring from when last reversal dose was given for a minimum of 60 minutes or longer pending the nurse and/or physician discretion of patient condition before discharge to Phase II. Please call the Sedation Physician to re-evaluate and complete post-note for discharge to Phase II area. Do NOT discharge from procedure sedation or Phase 1 until post- sedation evaluation note is complete by procedure /sedation MD Sedation Discharge Instructions to be given to the patient at discharge to home.
--- NOTE | 2020-11-11 18:11 | Electrocardiogram Report ---
Test Reason : Blood Pressure : / mmHG Vent. Rate : 039 BPM Atrial Rate : 083 BPM P-R Int : 000 ms QRS Dur : 148 ms QT Int : 558 ms P-R-T Axes : 054 -17 082 degrees QTc Int : 449 ms Sinus bradycardia Right bundle branch block Inferior infarct , age undetermined Abnormal ECG When compared with ECG of 28-NOV-2011 07:35, Inferior infarct is now Present QT has shortened Confirmed by Edgar Erickson ([id number]) on 11/11/2020 6:11:46 PM Referred By: REFERRED SELF Confirmed By:Edgar Erickson
[2020-11-11] MEDS ORDERED: HEPARIN SOD 5,000 UNIT/0.5 ML VIAL SQ SCH (21:00)
[2020-11-11] MEDS: TAMSULOSIN HCL 0.4 MG CAP PO SCH (21:35)
[2020-11-11] MEDS: ATORVASTATIN 40 MG TAB PO SCH (21:35)
[2020-11-11] MEDS: HEPARIN SOD 5,000 UNIT/0.5 ML VIAL SQ SCH (21:36)
[2020-11-12 07:18] LABS: BUN Creatinine Ratio 18.3 (10-20); Creatinine Clr Calc Pharmacy 80.7 ml/min; Est GFR (African American) 70.5; Est GFR (Non-African American) 60.8; Potassium 3.5 mmol/L (3.5-5.1)
[2020-11-12] MEDS: INSULIN ASPART 100 UNITS/ML 3 ML PEN SC SCH ×4 (07:35→20:32)
[2020-11-12 08:02] LABS: Estimated Average Glucose 148 mg/dl; Hemoglobin A1C 6.8 % (4.5-5.6)
--- NOTE | 2020-11-12 08:12 | Cardiology Progress Note ---
Date of Service November 12, 2020 Assessment & Plan (1) Status post placement of cardiac pacemaker: He is postop day #1 today, chest x-ray shows good lead position but he has a small apical pneumothorax. This should not require any intervention. He is stable for discharge from my standpoint, I will arrange follow-up on Saturday or Saturday and repeat the chest x-ray at that time to document resolution of the pneumothorax. (2) Complete heart block by electrocardiogram: Admission and Anticipated Discharge Date Admission Date: November 11, 2020 Results & Data ([facility]) Vital Signs (Past 12 Hours) Vital Signs Temp Pulse Pulse Resp BP Pulse Ox 11/12/20 07:16 36.8 C 92 H 19 149/98 H 91 11/12/20 04:02 36.8 C 89 18 149/84 H 95 11/11/20 23:46 85 11/11/20 23:24 36.8 C 84 17 138/85 93 Laboratory Results Cardiac Enzymes 11/11/20 Range/Units 10:27 AST 16 (15-37) U/L Troponin I 0.016 (0-0.045) ng/ml Coagulation 11/11/20 Range/Units 10:27 PT 10.6 (9.0-12.0) Seconds CBC 11/11/20 Range/Units 10:27 WBC 8.06 (4.8-10.8) K/uL RBC 5.19 (4.7-6.1) M/uL Hgb 15.6 (14.0-18.0) g/dL Hct 46.6 (42-52) % Plt Count 185 (130-400) K/uL Neut # (Auto) 4.23 (1.4-6.5) K/uL Lymph # (Auto) 3.05 (1.2-3.4) K/uL Rogers # (Auto) 0.68 H (0.11-0.59) K/uL Eos # (Auto) 0.07 (0-0.5) K/uL Baso # (Auto) 0.01 (0-0.2) K/uL Comprehensive Metabolic Panel 11/11/20 11/12/20 Range/Units 10:27 06:35 Sodium 140 140 (136-145) mmol/L Potassium 3.7 3.5 (3.5-5.1) mmol/L Chloride 104 104 (98-107) mmol/L Carbon Dioxide 31 31 (21-32) mmol/L BUN 21 H 21 H (7-18) mg/dl Creatinine 1.29 1.16 (0.6-1.4) mg/dl Glucose 158 H 139 H (70-99) mg/dl Calcium 8.9 9.0 (8.5-10.1) mg/dl AST 16 (15-37) U/L ALT 39 (12-78) U/L Alkaline Phosphatase 65 (45-117) U/L Total Protein 7.4 (6.4-8.2) gm/dl Albumin 3.6 (3.4-5.0) gm/dl Intake and Output 11/11/20 11/12/20 11/12/20 22:59 06:59 14:59 Intake Total 270 / 520 250 / 520 Output Total 1550 / 2100 550 / 2100 Balance -1280 / -1580 -300 / -1580 Intake: Oral 270 / 520 250 / 520 Output: Urine 1550 / 2100 550 / 2100 Other: # Unmeasured Voids 1 Weight 146.9 kg Weight Measurement Method Standing Scale Diagnostic Findings Postop ECG: Appropriate dual-chamber pacing, 100% ventricular and intermittent atrial Telemetry: Normal dual-chamber pacemaker operation Chest x-ray: Good lead position. A small (4 mm) apical pneumothorax noted Pacemaker evaluation:Excellent pacing and sensing characteristics PG Care Time/CCT Total # of Minutes Spent Total Time Spent with Patient: Total time spent is greater than 50% in coordination of care (as documented) at patient's floor/unit and/or counseling patient: Coding Level of Care Code 36661 Post Operative Follow-Up Diagnoses Status post placement of cardiac pacemaker Z95.0 Complete heart block by electrocardiogram I44.2 CPT Codes Dual Lead Pacemaker System - [id number] ([id number])
[2020-11-12] MEDS: HEPARIN SOD 5,000 UNIT/0.5 ML VIAL SQ SCH ×2 (08:17→20:44)
--- NOTE | 2020-11-12 08:19 | XRay Report ---
XR chest 2V PA/lateral CLINICAL HISTORY: EXACT TIME ORDERED Evaluate for pneumothorax and l COMPARISON STUDY: November 11, 2020 FINDINGS: The heart is enlarged. There is been interval placement of a left subclavian dual-chamber c entral venous pacemaker. The lead position appears unremarkable the provided images. There is a 4 mm left apical pneumothorax. There are old left-sided rib deformities. There is slight elevation of inte rstitium and mild pulmonary vascular congestion is suspected. There are no significant pleural effusi ons..[ IMPRESSION: 1. Interval placement of a left subclavian dual-chamber central venous pacemaker 2. 4 mm left apical pneumothorax. ACT 112: Negative or not required by law. Electronically signed by: Cedrick Encarnacion M.D. 11/12/2020 8:18 AM
[2020-11-12] MEDS: LACTATED RINGER'S 1,000 ML IV SCH (13:30)
[2020-11-12] MEDS ORDERED: POTASSIUM CHLORIDE CRTAB 20 MEQ TABCR PO STA (13:37)
--- NOTE | 2020-11-12 13:39 | Hospitalist Progress Note ---
Date of Service November 12, 2020 Assessment & Plan (1) Status post placement of cardiac pacemaker: POD #1 s/p permanent pacemaker placement for complete heart block / symptomatic bradycardia. Pacing intermittently since pacemaker insertion. Pacer functioning well. Small left-sided pneumothorax on imaging today. Will apply 2 L NC O2, and repeat cxr in am. Likely to not need anything for this. Appreciate cardiology assistance. (2) Pneumothorax on left: 4mm. s/p permanent pacemaker insertion. NC O2. repeat CXR am of 11/13/20 to ensure stability. (3) Symptomatic bradycardia: s/p permanent pacemaker placement on 11/11/20. Can resume low-dose BB today. TSH, lyme wnl. (4) Complete heart block by electrocardiogram: As above. POD #1 s/p permanent pacemaker placement. (5) Hypertension: Hold losartan. Resume metoprolol BID low-dose (12.5mg BID). (6) Diabetes: a1c 6.8% with metformin monotherapy as outpatient. BSGs acceptable thus far. Cont novolog prn. (7) Dyslipidemia: Continue Atorvastatin. (8) Morbid obesity: BMI 43.9 (9) BPH (benign prostatic hyperplasia): Cont flomax (10) CAD (coronary artery disease): noted Cont statin. Resume low-dose BB. cont ARB. uncertain why he is not on daily aspirin. (11) CARRILLO (dyspnea on exertion): Initially thought due to symptomatic bradycardia/heart block. However, despite the pacer insertion, he continues with these complaints. I cannot rule out element of volume overload given his cxr findings, LE edema, etc. Did receive lasix yesterday and tolerated this. Give additional lasix 40mg IV x 1 and re-eval in am. Echo findings noted. (12) DVT prophylaxis: heparin 7500 units TID Admission and Anticipated Discharge Date Admission Date: November 11, 2020 Subjective s/p pacemaker insertion yesterday. since then he has had intermittent pacing. he does overall feel better in comparison to when he first was admitted. however - continues with CARRILLO with minimal activity/walking. also with continued edema- worse than baseline. eating ok. Review of Systems Constitutional: no anorexia Respiratory: no cough Cardiovascular: + edema; no chest pain Gastrointestinal: no abdominal pain Physical Exam Constitutional: + acute distress (with walking - significant dyspnea on exertion) and + morbidly obese; no altered mental status ENMT: external ear and nose normal, oropharynx normal Neck: fat pads supraclavicular areas b/l Respiratory: Auscultation: + diminished lung sounds (bases); no crackles and no wheezes Cardiovascular: Rate/Rhythm: regular rate and regular rhythm Heart Sounds: normal S1 and normal S2; no murmur Vessels: posterior tibial pulses present and dorsalis pedis pulses present; no JVD Extremities: + edema (1+ b/l ) Chest (Breasts): Additional Comments: pacer site, left chest - clean, no hematoma, dressing intact Gastrointestinal (Abdomen): normal bowel sounds, soft, nontender, no hepatosplenomegaly Inspection/Auscultation: + abdomen distended Psychiatric: A+Ox3, euthymic affect Results & Data Results & Data ([facility]) Vital Signs (Past 12 Hours) Vital Signs Temp Pulse Resp BP Pulse Ox 11/12/20 11:06 36.8 C 87 18 148/96 H 94 11/12/20 07:16 36.8 C 92 H 19 149/98 H 91 11/12/20 04:02 36.8 C 89 18 149/84 H 95 Laboratory Results Laboratory Results - last 24 hr 11/11/20 11/11/20 11/11/20 13:53 16:44 20:08 Sodium Potassium Chloride Carbon Dioxide Anion Gap BUN Creatinine Est Cr Clr Drug Dosing Est GFR ( Amer) Est GFR (Non-Af Amer) BUN/Creatinine Ratio Glucose POC Glucose 104 H 98 121 H Estimat Average Glucose Hemoglobin A1c Calcium 11/12/20 11/12/20 11/12/20 06:35 06:35 07:14 Sodium 140 Potassium 3.5 Chloride 104 Carbon Dioxide 31 Anion Gap 5.0 BUN 21 H Creatinine 1.16 Est Cr Clr Drug Dosing 80.7 Est GFR ( Amer) 70.5 Est GFR (Non-Af Amer) 60.8 BUN/Creatinine Ratio 18.3 Glucose 139 H POC Glucose 137 H Estimat Average Glucose 148 Hemoglobin A1c 6.8 H Calcium 9.0 11/12/20 11:06 Sodium Potassium Chloride Carbon Dioxide Anion Gap BUN Creatinine Est Cr Clr Drug Dosing Est GFR ( Amer) Est GFR (Non-Af Amer) BUN/Creatinine Ratio Glucose POC Glucose 113 H Estimat Average Glucose Hemoglobin A1c Calcium PG Care Time/CCT Total # of Minutes Spent Total Time Spent with Patient: Total time spent is greater than 50% in coordination of care (as documented) at patient's floor/unit and/or counseling patient: Coding Level of Care Code 17304 Subseq Hosp Care Lvl 3 Diagnoses Status post placement of cardiac pacemaker Z95.0 Pneumothorax on left J93.9 Symptomatic bradycardia R00.1 Complete heart block by electrocardiogram I44.2 Hypertension I10 Hypertension type: essential hypertension Diabetes E11.9 Dyslipidemia E78.5 Morbid obesity E66.01 BPH (benign prostatic hyperplasia) N40.0 CAD (coronary artery disease) I25.10 CARRILLO (dyspnea on exertion) R06.00 DVT prophylaxis Z29.9 (1) Hypertension Hypertension type: essential hypertension Qualified Code(s): I10 - Essential (primary) hypertension
[2020-11-12] MEDS ORDERED: FUROSEMIDE 40 MG/4 ML VIAL IV ONE (13:45)
[2020-11-12] MEDS ORDERED: FUROSEMIDE 40 MG in SYRINGE 0 ML IV ONE (14:15)
[2020-11-12] MEDS: MAGNESIUM OXIDE 400 MG TAB PO SCH (14:48)
[2020-11-12] MEDS ORDERED: ALBUTEROL HFA 8 GM INHALER INH PRN (18:10)
[2020-11-12] MEDS: TAMSULOSIN HCL 0.4 MG CAP PO SCH (20:44)
[2020-11-12] MEDS: ATORVASTATIN 40 MG TAB PO SCH (20:44)
[2020-11-12] MEDS: METOPROLOL TARTRATE 25 MG TAB PO SCH (20:44)
[2020-11-13] MEDS ORDERED: HEPARIN SOD 5,000 UNIT/0.5 ML VIAL SQ SCH (06:00)
--- NOTE | 2020-11-13 06:06 | Electrocardiogram Report ---
Test Reason : Blood Pressure : / mmHG Vent. Rate : 071 BPM Atrial Rate : 071 BPM P-R Int : 210 ms QRS Dur : 176 ms QT Int : 472 ms P-R-T Axes : 025 091 045 degrees QTc Int : 512 ms Atrial-sensed ventricular-paced rhythm with prolonged AV conduction Abnormal ECG When compared with ECG of 11-NOV-2020 10:21, Ventricular pacing is now present Intermittent atrial pacing is now present Vent. rate has increased BY 32 BPM Confirmed by Rodríguez Anderson ([id number]) on 11/13/2020 6:05:41 AM Referred By: REFERRED SELF Confirmed By:Rodríguez Anderson
[2020-11-13 06:14] LABS: Hematocrit (blood only) 44.2 % (42-52); Hemoglobin 14.8 g/dL (14.0-18.0); Mean Corpuscular Hemoglobin 29.7 pg (25-34); Mean Corpuscular Hgb Conc 33.5 g/dL (32-36); Mean Corpuscular Volume 88.6 fL (80-100); Mean Platelet Volume 10.4 fL (7.4-10.4); Platelet Count 119 K/uL (130-400); RDW Coefficient of Variation 15.3 % (11.5-14.5); RDW Standard Deviation 49.2 fL (36.4-46.3); Red Blood Count 4.99 M/uL (4.7-6.1); White Blood Count 8.44 K/uL (4.8-10.8)
--- NOTE | 2020-11-13 06:28 | Electrocardiogram Report ---
Test Reason : Blood Pressure : / mmHG Vent. Rate : 088 BPM Atrial Rate : 088 BPM P-R Int : 224 ms QRS Dur : 162 ms QT Int : 424 ms P-R-T Axes : 057 -67 089 degrees QTc Int : 513 ms Atrial-sensed ventricular-paced rhythm with prolonged AV conduction Abnormal ECG When compared with ECG of 11-NOV-2020 17:59, Vent. rate has increased BY 17 BPM Confirmed by Rodríguez Anderson ([id number]) on 11/13/2020 6:27:49 AM Referred By: REFERRED SELF Confirmed By:Rodríguez Anderson
[2020-11-13 06:50] LABS: BUN Creatinine Ratio 17.7 (10-20); Calcium 8.9 mg/dl (8.5-10.1); Creatinine Clr Calc Pharmacy 82.4 ml/min; Est GFR (Non-African American) 62.1; Magnesium 2.2 mg/dl (1.8-2.4); Potassium 3.4 mmol/L (3.5-5.1)
[2020-11-13] MEDS: INSULIN ASPART 100 UNITS/ML 3 ML PEN SC SCH ×2 (07:36→11:49)
[2020-11-13] MEDS: METOPROLOL TARTRATE 25 MG TAB PO SCH (07:58)
[2020-11-13] MEDS: MAGNESIUM OXIDE 400 MG TAB PO SCH (07:58)
[2020-11-13] MEDS ORDERED: POTASSIUM CHLORIDE CRTAB 20 MEQ TABCR PO STA (08:22)
[2020-11-13] MEDS ORDERED: METOPROLOL TARTRATE 25 MG TAB PO ONE (08:45)
[2020-11-13] MEDS ORDERED: FUROSEMIDE 40 MG in SYRINGE 0 ML IV ONE (09:00)
[2020-11-13] MEDS ORDERED: FLUTICASONE/VILANTEROL 200/25MCG 14 PUFFS/INHALER INH SCH (09:00)
--- NOTE | 2020-11-13 09:23 | XRay Report ---
XR chest 2V PA/lateral CLINICAL HISTORY: Pneumothorax. Follow-up study. COMPARISON STUDY: November 12, 2020 FINDINGS: The heart remains enlarged. There is a left subclavian dual-chamber central venous pacemake r. There is a decreasing trace left apical pneumothorax with pleural separation of 2 mm. There are li near bibasilar opacities, consistent with subsegmental atelectatic change. There are old left-sided r ib deformities.[There are equivocal trace pleural effusions. IMPRESSION: 1. Decreasing trace left apical pneumothorax, with a pleural separation of 2 mm 2. Subsegmental atelectatic changes at the lung bases. ACT 112: Negative or not required by law. Electronically signed by: Cedrick Encarnacion M.D. 11/13/2020 9:22 AM
--- NOTE | 2020-11-13 12:07 | Discharge Summary ---
Date of Service date of admission - November 11, 2020 date of discharge - November 13, 2020 Admission HPI Per Admitting Provider 75-year-old male - typically followed by the [place] [facility] - who presents with shortness of breath for the last few days. He first noticed the shortness of breath when he was cleaning his vehicle. Was not associated with any chest pain or pressure. Patient states his symptoms improve with staying still and is worsened when he moves about. Patient has had no recent medication changes but does take a beta-jacques. Patient has no known history of Lyme disease and has been tested 3 times in the past due to various tick bites. Patient states that he does have a tendency to retain fluid and he noted of late that he has had more swelling to his lower extremities. He reports taking a water pill although this is not listed on his med reconciliation. Upon presentation to the emergency department his blood pressure was stable but his heart rate is in the 30s. He was given glucagon in an attempt to reverse the beta-jacques but this did not have any effect on increasing his heart rate. Principal Diagnosis Complete heart block s/p permanent pacemaker placement Discharge Exam Constitutional + morbidly obese; no acute distress and no altered mental status ENMT external ear and nose normal, oropharynx normal Respiratory Auscultation: + diminished lung sounds (bases); no crackles and no wheezes Cardiovascular Rate/Rhythm: regular rate and regular rhythm Heart Sounds: normal S1 and normal S2; no murmur Vessels: posterior tibial pulses present and dorsalis pedis pulses present; no JVD Extremities: + edema (1+ b/l ) Chest (Breasts) Additional Comments: dressings intact over left upper chest pacemaker site Gastrointestinal (Abdomen) normal bowel sounds, soft, nontender, no hepatosplenomegaly Psychiatric A+Ox3, euthymic affect Discharge Data Allergies Allergy/AdvReac Type Severity Reaction Status Date / Time No Known Allergies Allergy Verified 11/11/20 11:43 Consultations Cardiology - Lyle Gabriel MD Procedures Performed Operation Date: 11/11/20 14:00 Actual Procedures p Pacer with A/V Leads (Dual) - Lyle Gabriel MD s Venogram, Unilateral - Lyle Gabriel MD Echocardiogram: * EF 55-60% * no regional wall motion abnormalities * moderate LVH * right ventricle mild to moderately dilated * right ventricular systolic function is normal * no significant valvular disease Ordered Studies 11/11/20 12:40 CL Cath Imgs for PACS use only Stat Hospital Course (1) Status post placement of cardiac pacemaker: At time of admission Dr Lyle Gabriel, [facility] Cardiology/electr ophysiology saw the patient in consult for his symptomatic bradycardia. Rhythm strips revealed complete heart block. Thus, on hospital day #1, Dr Gabriel placed a permanent pacemaker for complete heart block / symptomatic bradycardia. Following such his telemetry showed intermittent pacing. Interrogation showed proper pacemaker function. Post-procedural cxr on hospital day #2 revealed a very small, left-sided pneumothorax. He was given 2 L NC O2, and repeat cxr on hospital #3 showed that the pneumothorax was smaller and resolving. He will follow-up with Dr Gabriel's office within 5 days of discharge for pacemaker check and incision check. Post-procedural instructions were given at time of discharge. (2) Pneumothorax on left: 4mm. This was in the setting of permanent pacemaker insertion. NC O2 was given after the pneumothorax was discovered, and repeat CXR on am of 11/13/20 showed the pneumothorax was smaller at 2mm. Expect the pneumothorax to fully resolve in the next few days. At time of hospital follow-up strongly consider repeat cxr to ensure complete resolution of the pneumothorax. (3) Symptomatic bradycardia: s/p permanent pacemaker placement on 11/11/20. Low-dose beta jacques was resumed prior to discharge. TSH, lyme were both normal. (4) Complete heart block by electrocardiogram: As above. s/p permanent pacemaker placement. (5) Hypertension: Metoprolol, losartan, and flomax were continued at discharge. Of note - lasix 20mg daily was substituted for HCTZ at discharge given chronic LE edema. (6) Diabetes: a1c 6.8% with metformin monotherapy as outpatient. BSGs acceptable during the stay. Creatinine on AM of discharge was normal; thus, metformin was resumed upon transition home. (7) Dyslipidemia: Continue Atorvastatin. (8) Morbid obesity: BMI about 44. (9) BPH (benign prostatic hyperplasia): Cont flomax. (10) CAD (coronary artery disease): Troponin was negative. He will continue his statin, metoprolol, and losartan. Uncertain why he is not on daily aspirin. NO ischemic symptoms while here. (11) CARRILLO (dyspnea on exertion): Initially thought due to symptomatic bradycardia/heart block. However, despite the pacer insertion, he continued with these complaints. I could not rule out element of volume overload/pulmonary edema given his cxr findings, LE edema, etc. He received 2 days of IV diuretic and dyspnea along with LE edema improved. At discharge he was asked to stop his HCTZ and start lasix 20mg daily in ely. He will need to check daily weights at home. He will follow-up with Dr Gabriel within a few days of discharge. Echo findings noted including preserved EF. Total Time Total Time Spent Total Time Spent (In Minutes): 45 Total Time Includes: Examination of the Patient, Discharge Planning and Medication Reconciliation Discharge Plan Discharge Items Patient Disposition: Home - Self-Care Reason For Visit: BRADYCARDIA / HEART BLOCK Discharge Diagnosis: 1. bradycardia (slow heart rate) / complete heart block (electricity flowing in the heart is impaired) --- resolved, insertion of pacemaker by Dr Lyle Gabriel 2. fluid retention in the lungs --- improving 3. left-sided pneumothorax (air leak in left lung due to recent pacemaker placement) --- improving on chest x-ray dated 11/13/20 Activity: Per Instructions section Sexual Activity: Wait until after follow-up appointment Exercise/Sports: Wait until after follow-up appointment Driving/Machine Use: no driving until cleared by Dr Gabriel Non-emergency contact: Primary Care Provider and Digital Imager Call non-emergency contact if: you have any medication questions, your symptoms worsen, your wound has increased redness, your wound has increased drainage and your wound pain has increased Follow-up/Referrals: Lyle Gabriel MD [Physician] - (Dr. Gabriel's office will call with appointment.) Chi Soriano MD [Primary Care Provider] - (see Dr Soriano within 1 week) Diet: Carb Consistent or DM2 and Heart Healthy Fluids: 1800ml (7 cups) Addtl Attending Provider Instructions: You were admitted to the hospital because of slow heart rate (also known as "bradycardia"). You were discovered to have complete heart block. Heart block occurs when there is an interruption in the normal movement of electricity through your heart. When people develop heart block symptoms can include fatigue, dizziness, lightheadedness, passing out, shortness of breath, etc. You were seen by [facility], Dr Lyle Gabriel, who recommended placement of a permanent pacemaker to treat your heart block. You underwent this on 11/11/2020. Your pacemaker is functioning well. The procedure led to a tiny air leak in your left lung called a pneumothorax; however, your chest x-r ays on 11/13/2020 showed that it is resolving. In addition you had evidence of excess water retention in your lungs and legs. This is a form of congestive heart failure. You likely developed this excess water because of the heart block problem. The excess water was removed with IV diuretics. Please see separate section regarding care of your pacemaker site. Medication recommendations - 1. for pain/discomfort -- tylenol 1000mg by mouth every 6-8 hours as needed, max of 3000mg in 24 hours 2. for fluid retention -- * STOP your hydrochlorothiazide * START furosemide 20mg once every morning starting AM of 11/14/20 * take potassium supplementation as well * you ultimately may need more or less furosemide depending on your response; Dr Gabriel can follow this carefully * check your weight on the same scale EVERY MORNING and write this down in a notebook -- see below 3. Congestive heart failure instructions -- Call 911 and go to the Emergency Room if: * You have tightness or pain in your chest that does not go away with rest or Nitroglycerin * You are very short of breath even with rest Call your doctor if any of the following symptoms or problems start or get worse: * Shortness of breath or difficulty breathing * Wake up at night short of breath * Chest pain * Cough * Swelling of your hands, fee, or legs * More fatigued or tired with your normal activity * Palpitations - sudden fast heart beats WEIGHT * Weigh yourself every morning after using the bathroom. * Use the same scale. * Wear the same amount of clothing. * Write your weight down on your chart. * Call your doctor if you gain more than 2-3 pounds in 1-2 days. This is usually the first sign of fluid retention as a result of heart problems. Don't delay - call your doctors. We can often adjust your water pills as an outpatient. MEDICATIONS * Use this discharge instruction sheet for instructions. * Take your medications at the time your doctor ordered. * Do not skip a dose of your medicines. * If you miss a dose of medicine, take as soon as possible, but DO NOT DOUBLE A DOSE. * Read your medicine information when you get home. * Know all of the side effects of your medicine. * Call your doctor's office if you have any side effects. * Be sure all of your doctors know what medicine and herbs you take (including cold, flu, and herbal medicine). * Pain Medicine: If you do not get relief from your pain, please call your doctor for help. Take the following with you to your follow-up doctor appointments: * Weight Chart * Medication List * List of questions Do not drink excessive alcohol, beer or wine. Limit fluids to about 1800cc every 24 hours. Limit salt intake to no more than 2000mg in 24 hours. Return to [facility] if -- * you have fever over 100 degrees * you have worsening shortness of breath or chest pains * you have drainage, increasing redness or increasing swelling at the site of your pacemaker * you have dizziness or lightheadedness * any other concerns It was a pleasure to care for you! -Dr Yaron Oter[employer]l [employer] Provider Instructions: ACTIVITY RECOMMENDATIONS following insertion of your pacemaker: * Do not raise the LEFT arm over your head, behind your back, or behind your neck for minimum of 2 weeks. SPECIAL CARE INSTRUCTIONS: * If bleeding occurs, apply direct pressure to area for 5 minutes. * Call your doctor if you have severe pain, fever, drainage or bleeding at site. * Keep dressing on and dry for 48 hours then remove. * Keep any scheduled doctor's appointment. * Implant Card - hand held device with website information given. SKIN IRRITATION: * You may experience some redness and/or swelling in the area where radiation was administered. If any skin irritation occurs, please contact your family physician. BATHING: * ok to take sponge baths with special attention to avoid getting your pacemaker site wet * NO TUB BATHS until seen by Dr Gabriel * NO SHOWERING until seen by Dr Gabriel Pending Studies at Discharge: No Stand-Alone Forms: My [facility], Smoking Cessation Medications and DC Order Prescriptions: New budesonide-formoterol [Symbicort] 160-4.5 mcg/actuation HFA aerosol inhaler 2 inh inhalation BID Qty: 10.2 RF: 0 Combivent Respimat 20-100 mcg/actuation mist 1 puff inhalation Q6H PRN (Reason: cough/wheeze/shortness of breath) Qty: 4 RF: 0 furosemide [Lasix] 20 mg tablet 20 mg PO QAM Qty: 30 RF: 1 potassium chloride 20 mEq tablet extended release 20 meq PO DAILY Qty: 30 RF: 1 Continued atorvastatin [Lipitor] 40 mg Tablet 40 mg PO HS RF: 0 metformin 500 mg Tablet 500 mg PO BID RF: 0 tamsulosin [Flomax] 0.4 mg Capsule 0.4 mg PO HS RF: 0 losartan 25 mg Tablet 25 mg PO QAM RF: 0 metoprolol tartrate [Lopressor] 50 mg Tablet 25 mg PO BID RF: 0 latanoprost 0.005 % Drops 1 drp OPB HS RF: 0 calcium carbonate [Calcium 500] 500 mg calcium (1,250 mg) Tablet 0 mg PO HS RF: 0 Ginseng Complex 150 mg-25 mg- 25 mg-15 mcg Capsule 1 cap PO Q2D RF: 0 Discontinued hydrochlorothiazide 25 mg Tablet 25 mg PO QAM RF: 0 Discharge Orders: Discharge Order (Routine); Ordered 11/13/20 Ordered By: Hi Keene/Other Patient Handouts: Managing Type 2 Diabetes, Understanding Third- Degree Heart Block Admission Data Admit Date/Time: 11/11/20 11:34 Attending Provider: Hi Marrufo Admit Provider: Miller Olivo Primary Care Provider: Chi Soriano Other Providers: Miller Olivo ; Lyle Gabriel ; [facility] Other Interventions: Discharge Summary Assessment (RN) Last Done: 11/13/20 12:11 Coding Level of Care Code D/C Day Management >30 mins Diagnoses Status post placement of cardiac pacemaker Z95.0 Pneumothorax on left J93.9 Symptomatic bradycardia R00.1 Complete heart block by electrocardiogram I44.2 Hypertension I10 Hypertension type: essential hypertension Diabetes E11.9 Dyslipidemia E78.5 Morbid obesity E66.01 BPH (benign prostatic hyperplasia) N40.0 CAD (coronary artery disease) I25.10 CARRILLO (dyspnea on exertion) R06.00
[2020-11-13] MEDS ORDERED: POTASSIUM CHLORIDE CRTAB 20 MEQ TABCR PO ONE (12:30)
[2020-11-13] MEDS ORDERED: METOPROLOL TARTRATE 25 MG TAB PO SCH (21:00)
--- NOTE | 2020-11-14 05:37 | Electrocardiogram Report ---
Test Reason : Blood Pressure : / mmHG Vent. Rate : 081 BPM Atrial Rate : 081 BPM P-R Int : 216 ms QRS Dur : 172 ms QT Int : 460 ms P-R-T Axes : 061 -66 088 degrees QTc Int : 534 ms Atrial-sensed ventricular-paced rhythm Abnormal ECG When compared with ECG of 12-NOV-2020 09:36, No significant change Confirmed by Rodríguez Anderson ([id number]) on 11/14/2020 5:36:37 AM Referred By: REFERRED SELF Confirmed By:Rodríguez Anderson
== END 2020-11-13 13:40 | disposition home or self-care (01) | DRG 243 ==
LOC: ED 10:08 → 2S 11:34 → SUATTDRO 11:34 → 2S 13:04

== ENCOUNTER 2024-12-25 19:17 | Inpatient (IN) ==
[2024-12-25 20:57] LABS: Basophils # (auto) 0.04 K/uL (0.00-0.20); Basophils % (auto) 0.5 %; Eosinophils # (auto) 0.11 K/uL (0.00-0.50); Eosinophils % (auto) 1.3 %; Hematocrit (blood only) 46.7 % (42.0-52.0); Hemoglobin 15.4 g/dl (14.0-18.0); Immature Granulocytes # (auto) 0.06 K/uL (0.01-0.20); Immature Granulocytes % (auto) 0.7 %; Lymphocytes # (auto) 2.88 K/uL (1.20-3.40); Lymphocytes % (auto) 34.7 %; Mean Corpuscular Hemoglobin 29.8 pg (25.0-34.0); Mean Corpuscular Volume 90.3 fL (80.0-100.0); Mean Platelet Volume 11.1 fL (9.4-12.4); Neutrophils # (auto) 4.21 K/uL (1.40-6.50); Neutrophils % (auto) 50.8 %; Platelet Count 176 K/uL (130-400); RDW Coefficient of Variation 16.2 % (11.5-14.5); RDW Standard Deviation 54.4 fL (36.4-46.3); Red Blood Count 5.17 M/uL (4.70-6.10)
[2024-12-25 21:13] LABS: Albumin Globulin Ratio 1.3 (0.9-2); BUN Creatinine Ratio 18.3 (10-20); Bilirubin,Total 0.6 mg/dl (0.2-1.0); Calcium 9.2 mg/dl (8.6-10.3); Creatinine Clr Calc Pharmacy 82.2 ml/min; Globulin 3.2 gm/dl (2.5-4.0); Magnesium 2.1 mg/dl (1.7-2.4); Phosphorus 3.7 mg/dl (2.5-4.9); Potassium 4.1 mmol/L (3.5-5.1); Total Protein 7.2 gm/dl (6.0-8.3)
[2024-12-25 21:21] LABS: Partial Thromboplastin Ratio 1.1; Partial Thromboplastin Time 29 Seconds (21-31); Prothrombin Time 10.8 Seconds (9.0-12.0)
[2024-12-25 21:28] LABS: Thyroid Stimulating Hormone 2.544 uIu/ml (0.300-4.500)
--- NOTE | 2024-12-25 21:41 | XRay Report ---
Exam(s): XR CXR 1 VIEW EXAM: XR Chest, 1 View CLINICAL HISTORY: Reason for exam: Chest pain, nonspecific. TECHNIQUE: Frontal view of the chest. COMPARISON: No relevant prior studies available. FINDINGS: Lungs: Airspace disease seen in the right lung base. No pulmonary edema Pleural space: Unremarkable. No pneumothorax. Heart: Mild cardiomegaly. Mediastinum: Unremarkable. Normal mediastinal contour. Bones/joints: Unremarkable. No acute fracture. Tubes, lines and devices: Pacemaker leads seen projecting over the right atrium and right ventricle. IMPRESSION: 1. Airspace disease in the right lung base which could be from atelectasis or pneumonia 2. Mild cardiomegaly Electronically signed by: Robby Braga MD 12/25/24 21:40 PM
--- NOTE | 2024-12-25 22:30 | Emergency Department Note ---
Impression & Plan Hypervolemia, Shortness of breath, Cardiac pacemaker, Paroxysmal atrial fibrillation ED Provider Note NAME: LEONOR ULLOA AGE: 79 SEX: M : 1945 ARRIVES VIA: Walk-In INFORMANT: Patient ED PROVIDER(S): Jose Julian MD CHIEF COMPLAINT: Feeling "strange". Home BP reading high and HR in the 30s PLAN: Disposition: Admit MEDICAL DECISION MAKING: The patient is a pleasant 79-year-old gentleman with a past medical history of complete heart block status post PPM, history of paroxysmal atrial fibrillation on Eliquis who presents to the emergency department via walk-in, accompanied by his and daughter for evaluation of symptoms of "feeling strange" where he reports taking his vital signs at home and his home blood pressure cuff and pulse oximeter read a heart rate in the 30s. He reports he consulted with a friend who recommend he go to the emergency department. He denies chest or palpitations. Otherwise the patient denies any recent fevers, nausea, vomiting, diarrhea. The patient reports he was doing well today. He reports he had dinner around 5 PM and [employer] frozen pizza after which his symptoms began. Patient reports that he has chronic swelling of his legs which improves when he raises them but they will become swollen throughout the day. Patient reports that he is understanding that he is "supposed to drink plenty of fluids every day" given he is on a water pill. On evaluation patient no acute distress, afebrile with stable vital signs. Documented heart rate of 39bpm likely erroneous in setting of his underlying A- fib with ventricular paced rhythm. Patient appears hypervolemic with 1+ bilateral lower extremity pitting edema. Mild wheeze of bilateral lung redman with mild increased work of breathing but no acute distress. EKG is paced with underlying atrial fibrillation. 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 CXR with vascular prominence and likely atelectasis of the right lung base per my preliminary independent interpretation. WBC, H/H and platelets within normal limits. Chemistry without metabolic acidosis. Electrolytes and LFTs unremarkable. High styptic troponin 12.4, within normal limits. TSH within normal limits. Chest x-ray demonstrates mild congestive change per my preliminary independent interpretation. Patient and family do admit that his breathing is more labored than normal. Given his hypervolemic appearance suspect likely related to this which may worsen underlying A-fib and contribute some of his symptoms. Patient agrees with plan for admission for further management. IV lasix ordered. Case was discussed with Dr. Reyes, [facility] [place] hospitalist, who will evaluate the patient for admission. Procalcitonin wnl. Respiratory Biofire was negative. Further management per admitting team. Triage Nursing notes reviewed and agree them. Prior/external medical records reviewed Vital Signs: reviewed Differential diagnosis: Reactive airway disease, pneumonia, pneumothorax, COPD, CHF, infections, cardiac ischemia, pulmonary embolism, musculoskeletal, gastrointestinal, as well as other pathologies. ER treatment provided: See below. Diagnostics interpreted by me: ECG: Ventricular paced rhythm with underlying atrial fibrillation, 92 bpm, no overt acute ischemia. Cardiac Monitoring: An order for continuous cardiac monitoring was placed and demonstrated Ventricular paced rhythm with underlying atrial fibrillation, 92 bpm. Laboratory studies: See below Imaging studies: See below Consultation(s): Case was discussed with Dr. Reyes [facility] [place] hospitalist, who will evaluate the patient for admission. HPI: The patient is a pleasant 79-year-old gentleman with a past medical history of complete heart block status post PPM, history of paroxysmal atrial fibrillation on Eliquis who presents to the emergency department via walk-in, accompanied by his and daughter for evaluation of symptoms of "feeling strange" where he reports taking his vital signs at home and his home blood pressure cuff and pulse oximeter read a heart rate in the 30s. He reports he consulted with a friend who recommend he go to the emergency department. He denies chest or palpitations. Otherwise the patient denies any recent fevers, nausea, vomiting, diarrhea. The patient reports he was doing well today. He reports he had dinner around 5 PM and [employer] frozen pizza after which his symptoms began. Patient reports that he has chronic swelling of his legs which improves when he raises them but they will become swollen throughout the day. Patient reports that he is understanding that he is "supposed to drink plenty of fluids every day" given he is on a water pill. ROS: See above HPI for pertinent positives & negatives. A total of 10 systems reviewed and were otherwise negative. VITALS:See Below PHYSICAL EXAMINATION: GENERAL: Awake, alert, in no distress, BMI 47.9. HENT: Normocephalic, atraumatic. Oropharynx unremarkable. EYES: Normal conjunctiva. Sclera non-icteric. NECK: Supple. No nuchal rigidity. FROM. No JVD. RESPIRATORY: Mild wheeze of bilateral lung redman with mild increased work of breathing but no acute distress. CARDIAC: Regular rate, normal rhythm. Extremities warm and well perfused. Pulses equal. ABDOMEN: Soft, non-distended. No tenderness to palpation. No rebound or guarding. No masses. MUSCULOSKELETAL: Chest examination reveals no tenderness. The back is symmetrical on inspection without obvious abnormality. There is no CVA tenderness to palpation. No joint edema. LOWER EXTREMITIES: Calves are equal size bilaterally and non-tender. 1+ BLE edema. No discoloration. NEURO: Normal sensorium. No sensory or motor deficits noted. SKIN: No rash or jaundice noted. Jose Julian MD Past Med/Surg History Problem List Shortness of breath (Acute) Hypervolemia (Acute) COPD (chronic obstructive pulmonary disease) T2DM (type 2 diabetes mellitus) Bradycardia Edema of both legs Pleural effusion Anticoagulant long-term use Paroxysmal atrial fibrillation (Acute) SVT (supraventricular tachycardia) HBP (high blood pressure) Cardiac pacemaker (Acute) S/P placement of cardiac pacemaker CHB (complete heart block) H/O inguinal hernia repair Medical History Arthritis of both knees Pneumothorax Pneumothorax on left CARRILLO (dyspnea on exertion) Complete heart block by electrocardiogram CAD (coronary artery disease) Symptomatic bradycardia Morbid obesity BPH (benign prostatic hyperplasia) Diabetes Hypertension Dyslipidemia Surgical History Status post placement of cardiac pacemaker Family History Mother Coronary heart disease Social History Smoking Status: Former smoker Tobacco Type: Cigarettes Second Hand Exposure: Yes; Do You Dip or Chew Tobacco: No; Hx Alcohol Use: Yes Alcohol type: beer Hx Substance Use: No Preferred Language: Samoan Communication Ability: Effective Pharmacist In Charge Required: No Beliefs That Will Affect Care: None Current Living Situation: Spouse Other Information That Helps Us Care for You: No Feels Safe at Home: Yes Safety Concerns: Feels Safe At This Time Assistive Devices: Glasses and Walker Allergies Allergies Allergy/AdvReac Type Severity Reaction Status Date / Time No Known Allergies Allergy Verified 07/27/24 10:29 Home Meds Home Medications Medication Instructions Recorded Confirmed atorvastatin 40 mg tablet (Lipitor) 20 mg PO HS 10/04/18 12/25/24 losartan 25 mg tablet 12.5 mg PO QAM 10/04/18 12/25/24 metformin 500 mg tablet 500 mg PO BID 10/04/18 12/25/24 metoprolol tartrate 50 mg tablet 25 mg PO BID 10/04/18 12/25/24 (Lopressor) tamsulosin 0.4 mg capsule (Flomax) 0.4 mg PO HS 10/04/18 12/25/24 calcium carbonate (Calcium 500) 500 mg PO HS 11/11/20 12/25/24 cholecalciferol (vitamin D3) 25 25 mcg PO DAILY 12/04/20 12/25/24 mcg (1,000 unit) capsule (Vitamin D3) albuterol sulfate 90 mcg/actuation 2 puff inhalation DIRECTED PRN 07/29/22 12/25/24 aerosol inhaler Shortness Of Breath Or Wheezing ascorbic acid (vitamin C) 500 mg 500 mg PO DAILY 12/25/24 12/25/24 tablet empagliflozin 25 mg tablet 25 mg PO QAM 12/25/24 12/25/24 fluticasone 250 mcg-salmeterol 50 1 inh inhalation BID 12/25/24 12/25/24 mcg/dose blistr powdr for inhalation (Advair Diskus) hydrocortisone 2.5 % lotion 1 applic topical BID PRN Skin 12/25/24 12/25/24 Irritation Previous Rx's Medication Instructions Recorded apixaban 5 mg tablet (Eliquis) 5 mg PO BID #180 tabs 07/27/24 furosemide 40 mg tablet 40 mg PO DAILY #30 tabs 12/26/24 Results & Data (ED) Vital Signs Vital Signs - 24 hr 12/25/24 19:26 12/25/24 19:31 12/25/24 19:37 Temperature 36.5 C Temperature Source Temporal Artery Scan Pulse Rate 39 L 51 L 42 L Respiratory Rate 22 Blood Pressure 151/67 H Blood Pressure Mean 95 Blood Pressure Position Sitting Pulse Oximetry 91 Oxygen Delivery Method Room Air Sepsis Recent Fever Within 48 Hours No Sepsis New/Unexplained Change in Mental Status No Sepsis Action Taken by Nursing No Action Required 12/25/24 19:39 12/25/24 19:57 12/25/24 20:30 Temperature Temperature Source Pulse Rate 76 61 64 Respiratory Rate 18 20 20 Blood Pressure 136/63 136/63 138/75 Blood Pressure Mean 85 87 96 Blood Pressure Position Pulse Oximetry 98 98 94 Oxygen Delivery Method Sepsis Recent Fever Within 48 Hours Sepsis New/Unexplained Change in Mental Status Sepsis Action Taken by Nursing 12/25/24 21:53 12/25/24 23:28 12/25/24 23:30 Temperature Temperature Source Pulse Rate 65 68 68 Respiratory Rate 18 18 Blood Pressure 119/70 131/72 Blood Pressure Mean 86 91 Blood Pressure Position Pulse Oximetry 93 93 Oxygen Delivery Method Sepsis Recent Fever Within 48 Hours Sepsis New/Unexplained Change in Mental Status Sepsis Action Taken by Nursing Laboratory Data Attestation: I reviewed the patient's lab results. 12/26/24 07:57 12/26/24 07:57 Lab Results 12/25/24 12/25/24 12/25/24 Range/Units 19:41 20:38 22:29 WBC Cancelled RBC Cancelled Hgb Cancelled Hct Cancelled MCV Cancelled MCH Cancelled MCHC Cancelled RDW Std Deviation Cancelled RDW Coeff of Palak Cancelled Plt Count Cancelled MPV Cancelled Immature Gran % (Auto) Cancelled Neut % (Auto) Cancelled Lymph % (Auto) Cancelled [place] % (Auto) Cancelled Eos % (Auto) Cancelled Baso % (Auto) Cancelled Neut # (Auto) Cancelled Lymph # (Auto) Cancelled [place] # (Auto) Cancelled Eos # (Auto) Cancelled Baso # (Auto) Cancelled Immature Gran # (Auto) Cancelled Absolute Nucleated RBC Cancelled Nucleated RBC % (auto) Cancelled Neutrophils % (Manual) Cancelled Band Neutrophils % Cancelled Lymphocytes % (Manual) Cancelled Prolymphocyte % Cancelled Reactive Lymphs % (Man) Cancelled Monocytes % (Manual) Cancelled Eosinophils % (Manual) Cancelled Basophils % (Manual) Cancelled Metamyelocytes % (Man) Cancelled Myelocytes % (Man) Cancelled Promyelocytes % (Man) Cancelled Blast Cells % (Manual) Cancelled Plasma Cell % (Manual) Cancelled Other Cells % Cancelled Nucleated RBC % Cancelled Neutrophils # (Manual) Cancelled Band Neutrophils # Cancelled Total Absolute Neuts Cancelled Lymphocytes # (Manual) Cancelled Prolymphocyte # Cancelled Reactive Lymphs # Cancelled Total Abs Lymphocytes Cancelled Monocytes # (Manual) Cancelled Eosinophils # (Manual) Cancelled Basophils # (Manual) Cancelled Metamyelocytes # (Man) Cancelled Myelocytes # (Manual) Cancelled Promyelocytes # (Man) Cancelled Blast Cells # (Man) Cancelled Plasma Cell # (Manual) Cancelled Other Cells # Cancelled Nucleated RBCs # (Man) Cancelled Hypersegmented Neuts Cancelled Hyposegmented Neuts Cancelled Hypogranular Neuts Cancelled Large Granular Lymphs Cancelled # Lrg Granular Lymphs Cancelled Hairy Cells Cancelled Smudge Cells Cancelled Toxic Granulation Cancelled Toxic Vacuolation Cancelled Dohle Bodies Cancelled Dawit Rods Cancelled Platelet Estimate Cancelled Hypogranular Platelets Cancelled Giant Platelets Cancelled Platelet Satelliting Cancelled RBC Morphology Cancelled Polychromasia Cancelled Hypochromasia Cancelled Poikilocytosis Cancelled Basophilic Stippling Cancelled Anisocytosis Cancelled Microcytosis Cancelled Macrocytosis Cancelled Spherocytes Cancelled Pappenheimer Bodies Cancelled Sickle Cells Cancelled Target Cells Cancelled Tear Drop Cells Cancelled Ovalocytes Cancelled Stomatocytes Cancelled Fraser-[place]antiago Bodies Cancelled Echinocytes Cancelled Acanthocytes (Spur) Cancelled Rouleaux Cancelled RBC Agglutinates Cancelled Schistocytes Cancelled Sezary Cell Cancelled PT Cancelled 10.8 INR Cancelled 1.0 APTT Cancelled 29 PTT Ratio Cancelled 1.1 Sodium Cancelled 140 Potassium Cancelled 4.1 Chloride Cancelled 106 Carbon Dioxide Cancelled 28 Anion Gap Cancelled 6 BUN Cancelled 20 Creatinine Cancelled 1.09 Est Cr Clr Drug Dosing Cancelled 82.2 eGFR Cancelled 68.61 BUN/Creatinine Ratio Cancelled 18.3 Glucose Cancelled 121 H Calcium Cancelled 9.2 Phosphorus Cancelled 3.7 Magnesium Cancelled 2.1 Total Bilirubin Cancelled 0.6 AST Cancelled 13 ALT Cancelled 17 Alkaline Phosphatase Cancelled 64 Troponin I High Sens 12.4 (0-20) pg/ml B-Natriuretic Peptide 103 H (0-100) pg/ml Total Protein Cancelled 7.2 Albumin Cancelled 4.0 Globulin Cancelled 3.2 Albumin/Globulin Ratio Cancelled 1.3 Procalcitonin 0.03 (0-0.5) ng/ml TSH Cancelled 2.544 Adenovirus (PCR) (NotDetected) B. pertussis DNA (PCR) (NotDetected) B.parapertussis DNA PCR (NotDetected) C. pneumoniae DNA (PCR) (NotDetected) Coronavirus OC43 (PCR) (NotDetected) Coronavirus HKU1 (PCR) (NotDetected) Coronavirus 229E (PCR) (NotDetected) SARS-CoV-2 (PCR) (NotDetected) Coronavirus NL63 (PCR) (NotDetected) Human Metapneumovir PCR (NotDetected) Influenza Type A (PCR) (NotDetected) Influenza Type B (PCR) (NotDetected) M. pneumoniae (PCR) (NotDetected) Parainfluenza 1 (PCR) (NotDetected) Parainfluenza 2 (PCR) (NotDetected) Parainfluenza 3 (PCR) (NotDetected) Parainfluenza 4 (PCR) (NotDetected) RSV (PCR) (NotDetected) Entero/Rhino (PCR) (NotDetected) Blood Parasites ID Cancelled 12/25/24 Range/Units 22:51 WBC RBC Hgb Hct MCV MCH MCHC RDW Std Deviation RDW Coeff of Palak Plt Count MPV Immature Gran % (Auto) Neut % (Auto) Lymph % (Auto) [place] % (Auto) Eos % (Auto) Baso % (Auto) Neut # (Auto) Lymph # (Auto) [place] # (Auto) Eos # (Auto) Baso # (Auto) Immature Gran # (Auto) Absolute Nucleated RBC Nucleated RBC % (auto) Neutrophils % (Manual) Band Neutrophils % Lymphocytes % (Manual) Prolymphocyte % Reactive Lymphs % (Man) Monocytes % (Manual) Eosinophils % (Manual) Basophils % (Manual) Metamyelocytes % (Man) Myelocytes % (Man) Promyelocytes % (Man) Blast Cells % (Manual) Plasma Cell % (Manual) Other Cells % Nucleated RBC % Neutrophils # (Manual) Band Neutrophils # Total Absolute Neuts Lymphocytes # (Manual) Prolymphocyte # Reactive Lymphs # Total Abs Lymphocytes Monocytes # (Manual) Eosinophils # (Manual) Basophils # (Manual) Metamyelocytes # (Man) Myelocytes # (Manual) Promyelocytes # (Man) Blast Cells # (Man) Plasma Cell # (Manual) Other Cells # Nucleated RBCs # (Man) Hypersegmented Neuts Hyposegmented Neuts Hypogranular Neuts Large Granular Lymphs # Lrg Granular Lymphs Hairy Cells Smudge Cells Toxic Granulation Toxic Vacuolation Dohle Bodies Dawit Rods Platelet Estimate Hypogranular Platelets Giant Platelets Platelet Satelliting RBC Morphology Polychromasia Hypochromasia Poikilocytosis Basophilic Stippling Anisocytosis Microcytosis Macrocytosis Spherocytes Pappenheimer Bodies Sickle Cells Target Cells Tear Drop Cells Ovalocytes Stomatocytes Fraser-[place] Bodies Echinocytes Acanthocytes (Spur) Rouleaux RBC Agglutinates Schistocytes Sezary Cell PT INR APTT PTT Ratio Sodium Potassium Chloride Carbon Dioxide Anion Gap BUN Creatinine Est Cr Clr Drug Dosing eGFR BUN/Creatinine Ratio Glucose Calcium Phosphorus Magnesium Total Bilirubin AST ALT Alkaline Phosphatase Troponin I High Sens (0-20) pg/ml B-Natriuretic Peptide (0-100) pg/ml Total Protein Albumin Globulin Albumin/Globulin Ratio Procalcitonin (0-0.5) ng/ml TSH Adenovirus (PCR) Not Detected (NotDetected) B. pertussis DNA (PCR) Not Detected (NotDetected) B.parapertussis DNA PCR Not Detected (NotDetected) C. pneumoniae DNA (PCR) Not Detected (NotDetected) Coronavirus OC43 (PCR) Not Detected (NotDetected) Coronavirus HKU1 (PCR) Not Detected (NotDetected) Coronavirus 229E (PCR) Not Detected (NotDetected) SARS-CoV-2 (PCR) Not Detected (NotDetected) Coronavirus NL63 (PCR) Not Detected (NotDetected) Human Metapneumovir PCR Not Detected (NotDetected) Influenza Type A (PCR) Not Detected (NotDetected) Influenza Type B (PCR) Not Detected (NotDetected) M. pneumoniae (PCR) Not Detected (NotDetected) Parainfluenza 1 (PCR) Not Detected (NotDetected) Parainfluenza 2 (PCR) Not Detected (NotDetected) Parainfluenza 3 (PCR) Not Detected (NotDetected) Parainfluenza 4 (PCR) Not Detected (NotDetected) RSV (PCR) Not Detected (NotDetected) Entero/Rhino (PCR) Not Detected (NotDetected) Blood Parasites ID Administered Medications Discontinued Medications Albuterol (Albut/Ipratrop 3mg/0.5mg Neb 3 Ml Vial) 3 ml NEB NOW STA; Protocol Stop: 12/26/24 00:05 Last Admin: 12/26/24 00:18 Dose: 3 ml Documented By: MARTIN Albuterol (Albut/Ipratrop 3mg/0.5mg Neb 3 Ml Vial) 3 ml NEB QIDR LEONORA; Protocol Stop: 01/25/25 06:59 Last Admin: 12/26/24 11:17 Dose: 3 ml Documented By: Admin: 12/26/24 07:24 Dose: 3 ml Documented By: HARESH Apixaban (Apixaban 5 Mg Tablet) 5 mg PO BID LEONORA Stop: 01/25/25 08:59 Last Admin: 12/26/24 09:15 Dose: 5 mg Documented By: SIMONA Fluticasone/Vilanterol (Fluticasone/Vilanterol 200/25mcg 14 Puffs/Inhaler) 1 puffs INH DAILY LEONORA Stop: 01/25/25 08:59 Last Admin: 12/26/24 09:16 Dose: 1 puffs Documented By: SIMONA Furosemide (Furosemide 40 Mg/4 Ml Vial) 40 mg IV ONE ONE Stop: 12/25/24 22:30 Last Admin: 12/25/24 22:43 Dose: 40 mg Documented By: MARTIN Furosemide (Furosemide 40 Mg/4 Ml Vial) 40 mg IV DAILY LEONORA Stop: 01/25/25 08:59 Last Admin: 12/26/24 09:16 Dose: 40 mg Documented By: SIMONA Methylprednisolone 40 mg/ (Syringe) 0.64 mls @ 1.5 mls/min IV Q24H LEONORA Stop: 01/25/25 08:59 Last Admin: 12/26/24 09:26 Dose: 1.5 mls/min Documented By: SIMONA Insulin Aspart (Insulin Aspart Per Unit Charge) 0 units SC ACHS LEONORA Stop: 01/25/25 07:29 Last Admin: 12/26/24 12:06 Dose: 7 units Documented By: SIMONA Co-signed By: PAYTON Admin: 12/26/24 09:05 Dose: 4 units Documented By: SIMONA Co-signed By: TYSON Insulin Glargine (Lantus Per Unit Charge) 15 units SC DAILY [facility] Stop: 01/25/25 08:59 Last Admin: 12/26/24 09:05 Dose: 15 units Documented By: SIMONA Co-signed By: TYSON Losartan Potassium (Losartan Potassium 25 Mg Tab) 12.5 mg PO QAM LEONORA Stop: 01/25/25 08:59 Last Admin: 12/26/24 09:15 Dose: 12.5 mg Documented By: SIMONA Metoprolol Tartrate (Metoprolol Tartrate 25 Mg Tab) 25 mg PO BID LEONORA Stop: 01/25/25 08:59 Last Admin: 12/26/24 09:15 Dose: 25 mg Documented By: SIMONA Perflutren Lipid Microsphere (Perflutren Lipid Microsphere (Definity)) 1.3 ml IV ONCE ONE Stop: 12/26/24 07:27 Last Admin: 12/26/24 07:26 Dose: 1.3 ml Documented By: ROSALIND Imaging Data Radiologist's Impression: Chest X-Ray 12/25/24 19:54 Exam(s): XR CXR 1 VIEW EXAM: XR Chest, 1 View CLINICAL HISTORY: Reason for exam: Chest pain, nonspecific. TECHNIQUE: Frontal view of the chest. COMPARISON: No relevant prior studies available. FINDINGS: Lungs: Airspace disease seen in the right lung base. No pulmonary edema Pleural space: Unremarkable. No pneumothorax. Heart: Mild cardiomegaly. Mediastinum: Unremarkable. Normal mediastinal contour. Bones/joints: Unremarkable. No acute fracture. Tubes, lines and devices: Pacemaker leads seen projecting over the right atrium and right ventricle. IMPRESSION: 1. Airspace disease in the right lung base which could be from atelectasis or pneumonia 2. Mild cardiomegaly Electronically signed by: Robby Braga MD 12/25/24 21:40 PM Discharge Plan Visit Data Chief Complaint: Hypotension Stated Complaint: LOW HEART RATE ED Provider: Jose Julian Discharge Problem: Hypervolemia, Shortness of breath, Cardiac pacemaker, Paroxysmal atrial fibrillation Patient Disposition: Admitted As Inpatient Discharge Instructions Interventions: ED Discharge Assessment Last Done: 12/26/24 00:30
[2024-12-25] MEDS: FUROSEMIDE 40 MG/4 ML VIAL IV ONE (22:43)
--- NOTE | 2024-12-25 23:17 | History & Physical Report ---
Date of Service December 25, 2024 Assessment & Plan (1) Pleural effusion: (2) Edema of both legs: (3) COPD (chronic obstructive pulmonary disease): (4) Bradycardia: (5) T2DM (type 2 diabetes mellitus): Plan Patient is an 79-year-old male with past medical history of disc hernia complete heart block s/p pacer, paroxysmal A-fib on Eliquis, CKD, hypertension, BPH, type II DM on Jardiance. He presented to the ED due to his pacer telling him he had heart rates in the 30s. ER provider stated [employer] associated reported no bradycardia recorded by the pacer. Patient's CXR showing cardiomegaly and airspace disease at right lung base. patient endorses dyspnea at rest and on exertion, worsened today after high salt dinner, chronic lower extremity edema. He is being admitted for CHF workup. Given Lasix 40 Mg IV in ED, will continue daily. #pleural effusion/lower extremity edema Will complete CHF workup - suspect undiagnosed CHF CXR showed cardiomegaly, airspace disease at right lung base (atelectasis or pneumonia), concern for pleural effusion Most recent echo in 2020 revealed EF 55 to 60%, moderate LVH Lung sounds revealed rhonchi and congestion in right lower lobe Given Lasix 40 Mg IV in ED, continue with Lasix 40 Mg IV daily BNP ordered Echocardiogram ordered oxygen prn for O2 < 92% Monitor on telemetry incentive spirometry #COPD exacerbation Diffuse wheezing on exam, expiratory wheezing DuoNeb ordered on admission Scheduled DuoNebs every 6 hours and every 2 hours as needed IV Solu-Medrol 40 Mg daily incentive spirometry Continue home inhalers sputum cultures ordered #Bradycardia Pacer interrogation revealed no episodes of bradycardia Troponin negative, TSH WNL continue metoprolol with holding precautions Monitor on telemetry #type II DM Controlled on Jardiance and metformin at home; hold A1c 6.8 in 2020, [facility]SI with CF 30, defer carb ratio pharmacy glycemic consult with IV steroid use Chronic stable diagnoses: A-fibcontinue Eliquis and metoprolol CADcontinue atorvastatin HTNcontinue losartan BPHcontinue tamsulosin, not currently in retention, bladder scan as needed VTE ppx: continue Eliquis, teds with edema Diet: heart healthy, low-sodium, type II DM, 1500 mL fluid restriction Dispo: med/telemetry Admission and Anticipated Discharge Date Admission Date: 12/25/2024 History of Present Illness Chief Complaint: hypotension Primary Care Provider: Chi Soriano MD Patient is an 79-year-old male with past medical history of disc hernia complete heart block s/p pacer, paroxysmal A-fib on Eliquis, CKD, hypertension, BPH, type II DM on Jardiance. He presented to the ED due to his pacer telling him he had heart rates in the 30s. ER provider stated [employer] associated reported no bradycardia recorded by the pacer. Patient's CXR showing cardiomegaly and airspace disease at right lung base. He is being admitted for CHF workup. Given Lasix 40 Mg IV in ED, will continue daily. Patient seen at bedside. He stated earlier today he just did not feel right with chest palpitations. He checked his pulse ox and at home blood pressure cuff which feels that his heart rate was in the 30s. So patient presented to the ED because this is why he needed a pacer in 2020. As per ED provider, pacer interrogation revealed no episodes of bradycardia. Patient also endorses a cough for several months along with white sputum production. He said he was treated with steroids, Claritin, and Mucinex earlier this year with his PCP. He also endorses dyspnea. Patient's oxygen dropped to 88% on room air while obtaining the following history. He denies any fevers, chills, sore throat, rhinorrhea, chest pain, abdominal pain, nausea, vomiting, diarrhea. He does endorse chronic lower extremity edema that gets worse throughout the day. Patient did eat additional notes pizza at 5 PM today in which his dyspnea worsened afterwards. He does not use nicotine products, however receives secondhand exposure from his . He rarely drinks alcohol. He stated he does have a past medical history of COPD and uses an inhaler as needed. He does not use oxygen at baseline. He took his home medications today including evening medications. He wishes to be full code. Patient is adamant that his blood pressure cuff revealed a correct heart rate and he was bradycardic earlier, however unable to determine as pacer revealed no bradycardia. Patient's daughter and updated at bedside. Allergies Allergy/AdvReac Type Severity Reaction Status Date / Time No Known Allergies Allergy Verified 07/27/24 10:29 Home Medications Medication Instructions Recorded Confirmed Type atorvastatin 40 mg tablet (Lipitor) 20 mg PO HS 10/04/18 12/25/24 History losartan 25 mg tablet 12.5 mg PO QAM 10/04/18 12/25/24 History metformin 500 mg tablet 500 mg PO BID 10/04/18 12/25/24 History metoprolol tartrate 50 mg tablet 25 mg PO BID 10/04/18 12/25/24 History (Lopressor) tamsulosin 0.4 mg capsule (Flomax) 0.4 mg PO HS 10/04/18 12/25/24 History calcium carbonate (Calcium 500) 500 mg PO HS 11/11/20 12/25/24 History cholecalciferol (vitamin D3) 25 25 mcg PO DAILY 12/04/20 12/25/24 History mcg (1,000 unit) capsule (Vitamin D3) albuterol sulfate 90 mcg/actuation 2 puff inhalation DIRECTED PRN 07/29/22 12/25/24 History aerosol inhaler Shortness Of Breath Or Wheezing apixaban 5 mg tablet (Eliquis) 5 mg PO BID #180 tabs 07/27/24 12/25/24 Rx ascorbic acid (vitamin C) 500 mg 500 mg PO DAILY 12/25/24 12/25/24 History tablet empagliflozin 25 mg tablet 25 mg PO QAM 12/25/24 12/25/24 History fluticasone 250 mcg-salmeterol 50 1 inh inhalation BID 12/25/24 12/25/24 History mcg/dose blistr powdr for inhalation (Advair Diskus) hydrocortisone 2.5 % lotion 1 applic topical BID PRN Skin 12/25/24 12/25/24 History Irritation furosemide 40 mg tablet 40 mg PO DAILY #30 tabs 12/26/24 Rx Past Med/Surg History Problem List Shortness of breath (Acute) Hypervolemia (Acute) COPD (chronic obstructive pulmonary disease) T2DM (type 2 diabetes mellitus) Bradycardia Edema of both legs Pleural effusion Anticoagulant long-term use Paroxysmal atrial fibrillation (Acute) SVT (supraventricular tachycardia) HBP (high blood pressure) Cardiac pacemaker (Acute) S/P placement of cardiac pacemaker CHB (complete heart block) H/O inguinal hernia repair Medical History Arthritis of both knees Pneumothorax Pneumothorax on left CARRILLO (dyspnea on exertion) Complete heart block by electrocardiogram CAD (coronary artery disease) Symptomatic bradycardia Morbid obesity BPH (benign prostatic hyperplasia) Diabetes Hypertension Dyslipidemia Surgical History Status post placement of cardiac pacemaker Family History Mother Coronary heart disease Social History Smoking Status: Former smoker Tobacco Type: Cigarettes Second Hand Exposure: Yes; Do You Dip or Chew Tobacco: No; Hx Alcohol Use: Yes Alcohol type: beer Hx Substance Use: No Preferred Language: Italian Communication Ability: Effective 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 HEENT- EOMI, mucous membranes moist. Hearing grossly intact. Heart-normal S1 and S2. No murmurs, rubs or gallops. Lungs-Rhonchi and congestion and right lower lobe, no respiratory distress, no accessory muscle use. Diffuse wheezing. Abdomen-normal bowel sounds and soft. No ascites noted. Non-tender. Extremities- no clubbing, cyanosis. +3 pitting edema BL LE. Rheumatologic-normal range of motion. Psychiatric-normal affect. Results & Data Results & Data Vital Signs (Past 12 Hours) Vital Signs Temp Pulse Resp BP Pulse Ox O2 Del Method 12/25/24 21:53 65 18 119/70 93 12/25/24 20:30 64 20 138/75 94 12/25/24 19:57 61 20 136/63 98 12/25/24 19:39 76 18 136/63 98 12/25/24 19:37 42 L 12/25/24 19:31 51 L 12/25/24 19:26 36.5 C 39 L 22 151/67 H 91 Room Air Laboratory Results Reviewed CBC, CMP, BioFire, troponin, TSH, procalcitonin Diagnostic Findings reviewed CXR Medications Administered ED40 Mg IV Lasix ECG Additional Comments: ordered Code Status & VTE Plan VTE Prophylaxis Plan VTE Prophylaxis will be ordered: Yes Supervising Physician Co-Signing Physician Notes Attending addendum: I have physically seen this patient, have supervised the GRISELDA's activities, and agree with the H&P unless as otherwise noted. Assessment and Plan: The patient is an 79-year-old male with past medical history including complete heart block status post pacer, paroxysmal atrial fibrillation on Eliquis, CKD, hypertension, BPH, diabetes mellitus type 2 on Jardiance. He presented to the emergency department, due to his pacer reporting that his heart rate was in the 30s, however, his [employer] pacer was interrogated in the ED, and no bradycardic episodes were found. Evaluation in the emergency department suggested fluid overload, for which patient was given furosemide 40 mg IV in ED, and then referred for evaluation for admission #Pleural effusion/pulmonary edema/lower extremity edema- Status post furosemide 40 mg IV in the ED The patient will be admitted to telemetry for serial cardiac enzymes, serial EKG's, cardiac rhythm monitoring and a 2-D echocardiogram with Dopplers. Give furosemide 40 mg IV every morning Follow serial BMP and magnesium levels COPD exacerbation-DuoNebs every 6 hours, and every 2 hours as needed Solu-Medrol 40 mg IV every morning Incentive spirometry Follow sputum Gram stain and culture Diabetes mellitus type 2- Holding metformin and Jardiance while in hospital Placed on Accu-Cheks NovoLog SSI Remaining orders and notations as noted PG Care Time/CCT Total # of Minutes Spent Total Time Spent with Patient: Total time spent is greater than 50% in coordination of care (as documented) at patient's floor/unit and/or counseling patient: Coding Level of Care Code 68852 INT INP/OBS CARE 3/75MIN Diagnoses Pleural effusion J90 Edema of both legs R60.0 COPD (chronic obstructive pulmonary disease) J44.9 Bradycardia R00.1 T2DM (type 2 diabetes mellitus) E11.9
[2024-12-25 23:44] LABS: Adenovirus PCR Not Detected (NotDetected); Bordetella parapertussis PCR Not Detected (NotDetected); Bordetella pertussis PCR Not Detected (NotDetected); Chlamydia pneumoniae PCR Not Detected (NotDetected); Coronavirus 229E PCR Not Detected (NotDetected); Coronavirus CoV-2 (COVID19)PCR Not Detected (NotDetected); Coronavirus HKU1 PCR Not Detected (NotDetected); Coronavirus NL63 PCR Not Detected (NotDetected); Coronavirus OC43PCR Not Detected (NotDetected); Human Metapneumovirus PCR Not Detected (NotDetected); Influenza A PCR Not Detected (NotDetected); Influenza B PCR Not Detected (NotDetected); Mycoplasma pneumoniae PCR Not Detected (NotDetected); Parainfluenza Virus 1 PCR Not Detected (NotDetected); Parainfluenza Virus 2 PCR Not Detected (NotDetected); Parainfluenza Virus 3 PCR Not Detected (NotDetected); Parainfluenza Virus 4 PCR Not Detected (NotDetected); Respiratory Syncytial VirusPCR Not Detected (NotDetected); Rhinovirus/Enterovirus PCR Not Detected (NotDetected)
[2024-12-26] MEDS: ALBUT/IPRATROP 3MG/0.5MG NEB 3 ML VIAL NEB STA (00:18)
[2024-12-26] MEDS ORDERED: GLUCOSE 40% GEL 15 GM TUBE PO PRN (01:09)
[2024-12-26] MEDS ORDERED: DOCUSATE SODIUM 100 MG CAP PO PRN (01:09)
[2024-12-26] MEDS ORDERED: MELATONIN 3 MG TAB PO PRN (01:09)
[2024-12-26] MEDS ORDERED: ACETAMINOPHEN 325 MG TAB PO PRN (01:09)
[2024-12-26] MEDS ORDERED: ALBUTEROL HFA 8 GM INHALER INH PRN (01:09)
[2024-12-26] MEDS ORDERED: ONDANSETRON INJ 2 MG/ML 2 ML VIAL IV PRN (01:09)
[2024-12-26] MEDS ORDERED: GLUCAGON FOR INJ 1 MG VIAL SQ PRN (01:09)
[2024-12-26] MEDS ORDERED: GLUCOSE 10 TAB/TUBE PO PRN (01:09)
[2024-12-26] MEDS ORDERED: DEXTROSE 50% 50 ML SYRINGE IV PRN (01:09)
[2024-12-26] MEDS ORDERED: CARBOHYDRATES FOR HYPOGLYCEMIA PO PRN (01:09)
[2024-12-26] MEDS ORDERED: ALBUT/IPRATROP 3MG/0.5MG NEB 3 ML VIAL NEB PRN (05:26)
[2024-12-26] MEDS ORDERED: PHARMACY GLYCEMIC MGMT CONSULT PRN (06:07)
[2024-12-26] MEDS: ALBUT/IPRATROP 3MG/0.5MG NEB 3 ML VIAL NEB SCH (07:24)
[2024-12-26] MEDS: PERFLUTREN LIPID MICROSPHERE (DEFINITY) IV ONE (07:26)
[2024-12-26 07:46] VITALS: TEMP 97.7
[2024-12-26 08:24] LABS: Basophils # (auto) 0.03 K/uL (0.00-0.20); Basophils % (auto) 0.4 %; Eosinophils # (auto) 0.09 K/uL (0.00-0.50); Eosinophils % (auto) 1.1 %; Hematocrit (blood only) 49.2 % (42.0-52.0); Hemoglobin 15.9 g/dl (14.0-18.0); Immature Granulocytes # (auto) 0.06 K/uL (0.01-0.20); Immature Granulocytes % (auto) 0.7 %; Lymphocytes # (auto) 3.02 K/uL (1.20-3.40); Lymphocytes % (auto) 37.1 %; Mean Corpuscular Hemoglobin 29.2 pg (25.0-34.0); Mean Corpuscular Hgb Conc 32.3 g/dL (32.0-36.0); Mean Corpuscular Volume 90.4 fL (80.0-100.0); Mean Platelet Volume 11.3 fL (9.4-12.4); Monocytes # (auto) 0.89 K/uL (0.11-0.59); Monocytes % (auto) 10.9 %; Neutrophils # (auto) 4.05 K/uL (1.40-6.50); Neutrophils % (auto) 49.8 %; Platelet Count 159 K/uL (130-400); RDW Coefficient of Variation 16.6 % (11.5-14.5); RDW Standard Deviation 54.2 fL (36.4-46.3); Red Blood Count 5.44 M/uL (4.70-6.10); White Blood Count 8.14 K/ul (4.8-10.8)
[2024-12-26 08:38] LABS: BUN Creatinine Ratio 17.1 (10-20); Calcium 8.9 mg/dl (8.6-10.3); Creatinine Clr Calc Pharmacy 84.1 ml/min; Potassium 3.9 mmol/L (3.5-5.1)
[2024-12-26] MEDS: INSULIN ASPART PER UNIT CHARGE SC SCH (09:05)
[2024-12-26] MEDS: LANTUS PER UNIT CHARGE SC SCH (09:05)
[2024-12-26] MEDS: METOPROLOL TARTRATE 25 MG TAB PO SCH (09:15)
[2024-12-26] MEDS: LOSARTAN POTASSIUM 25 MG TAB PO SCH (09:15)
[2024-12-26] MEDS: APIXABAN 5 MG TABLET PO SCH (09:15)
[2024-12-26] MEDS: FLUTICASONE/VILANTEROL 200/25MCG 14 PUFFS/INHALER INH SCH (09:16)
[2024-12-26] MEDS: FUROSEMIDE 40 MG/4 ML VIAL IV SCH (09:16)
[2024-12-26] MEDS: methylPREDNISolone 40 MG in SYRINGE 0 ML IV SCH (09:26)
--- NOTE | 2024-12-26 11:42 | Pharmacy Report ---
Pharmacy Glycemic Short Note 2 - Date of Service December 26, 2024 - Glycemic Short BSG Results (Last 24 hours): 12/25/24 12/25/24 12/26/24 19:41 20:38 01:24 Glucose Cancelled 121 H POC Glucose 138 H 12/26/24 12/26/24 12/26/24 07:36 07:57 11:25 Glucose 141 H POC Glucose 120 H 167 H OUTPATIENT ANTIDIABETIC REGIMEN: * Jardiance 25mg PO daily * Metformin 500mg PO BID * A1c pending (previously 6.8% 11/12/2020) ASSESSMENT: * 79 YO M, PMH of disc hernia complete heart block s/p pacer, paroxysmal A-fib on Eliquis, CKD, hypertension, BPH, type II DM on Jardiance. He presented to the ED due to his pacer telling him he had heart rates in the 30s. Started on IV Solu-Medrol 40mg daily. * Pt is maintained on oral antidiabetic agents as an outpatient * Oral agents are not recommended for inpatient use d/t drug interactions, changing PO intake, and difficulty titrating for acute hyper/hypoglycemia. * Will hold oral agents for admission and utilize SQ basal bolus insulin regimen which is the recommended regimen for inpatient glycemic control. * Will initiate weight based insulin dosing for insulin damion patient and titrate based on BSG trends. PLAN FOR INPATIENT GLYCEMIC CONTROL: * Hold outpatient oral diabetes medications * Basal insulin * Lantus 15 units SQ daily with IV Solu-Medrol * Bolus insulin * NovoLog per scale ACHS or Q6hrs while NPO * Goal Range: Low 110 mg/dL - High 140 mg/dL * Correction Factor: 15 mg/dL/unit * Nutritional / Prandial insulin per carb ratio of 1 unit per 7 grams CHO consumed
[2024-12-26 12:05] VITALS: BP 118/63; PULSE 63; RESP 18; O2SAT 94
--- NOTE | 2024-12-26 12:32 | Electrocardiogram Report ---
Test Reason : Blood Pressure : */* mmHG Vent. Rate : 92 BPM Atrial Rate : 92 BPM P-R Int : * ms QRS Dur : 154 ms QT Int : 404 ms P-R-T Axes : * 81 99 degrees QTcB Int : 499 ms Ventricular pacing with underlying atrial fibrillation and vbigeminy Non-specific intra-ventricular conduction block Lateral infarct , age undetermined Abnormal ECG When compared with ECG of 04-Dec-2020 11:30, Atrial Fibrillation is now present along with frequent PVCs Confirmed by Bonnie Mckeon (T[facility]cio) on 12/26/2024 12:31:56 PM Referred By: REFERRED SELF Confirmed By: Bonnie Mckeon
--- NOTE | 2024-12-26 18:04 | Discharge Summary ---
Discharge Summary Date of Service December 26, 2024 Principal Dx & Hospital Course #1 = Principal Diagnosis (1) Pleural effusion: (2) Edema of both legs: (3) COPD (chronic obstructive pulmonary disease): (4) Bradycardia: (5) T2DM (type 2 diabetes mellitus): Plan Patient is an 79-year-old male with past medical history of disc hernia complete heart block s/p pacer, paroxysmal A-fib on Eliquis, CKD, hypertension, BPH, type II DM on Jardiance. He presented to the ED due to his pacer telling him he had heart rates in the 30s. ER provider stated [employer] associated reported no bradycardia recorded by the pacer. Patient's CXR showing cardiomegaly and airspace disease / atelectasis at right lung base. patient endorses dyspnea at rest and on exertion, worsened today after high salt dinner, chronic lower extremity edema. He is being admitted for CHF workup. Given Lasix 40 Mg IV in ED, will continue daily. HFpEF exacerbation Improved after IV Lasix, discharged on Lasix 40mmg daily with outpatient follow up Ambulated on room air without desaturation #Bradycardia Pacer interrogation revealed no episodes of bradycardia Troponin negative, TSH WNL continue metoprolol Monitored on telemetry - no arrhythmia noted #type II DM Controlled on Jardiance and metformin at home; hold A1c 6.8 in 2020, follows with [facility] Chronic stable diagnoses: A-fibcontinue Eliquis and metoprolol CADcontinue atorvastatin HTNcontinue losartan BPHcontinue tamsulosin, not currently in retention, bladder scan as needed Discharged home Admission HPI Per Admitting Provider Patient is an 79-year-old male with past medical history of disc hernia complete heart block s/p pacer, paroxysmal A-fib on Eliquis, CKD, hypertension, BPH, type II DM on Jardiance. He presented to the ED due to his pacer telling him he had heart rates in the 30s. ER provider stated [employer] associated reported no bradycardia recorded by the pacer. Patient's CXR showing cardiomegaly and airspace disease at right lung base. He is being admitted for CHF workup. Given Lasix 40 Mg IV in ED, will continue daily. Patient seen at bedside. He stated earlier today he just did not feel right with chest palpitations. He checked his pulse ox and at home blood pressure cuff which feels that his heart rate was in the 30s. So patient presented to the ED because this is why he needed a pacer in 2020. As per ED provider, pacer interrogation revealed no episodes of bradycardia. Patient also endorses a cough for several months along with white sputum production. He said he was treated with steroids, Claritin, and Mucinex earlier this year with his PCP. He also endorses dyspnea. Patient's oxygen dropped to 88% on room air while obtaining the following history. He denies any fevers, chills, sore throat, rhinorrhea, chest pain, abdominal pain, nausea, vomiting, diarrhea. He does endorse chronic lower extremity edema that gets worse throughout the day. Patient did eat additional notes pizza at 5 PM today in which his dyspnea worsened afterwards. He does not use nicotine products, however receives secondhand exposure from his . He rarely drinks alcohol. He stated he does have a past medical history of COPD and uses an inhaler as needed. He does not use oxygen at baseline. He took his home medications today including evening medications. He wishes to be full code. Patient is adamant that his blood pressure cuff revealed a correct heart rate and he was bradycardic earlier, however unable to determine as pacer revealed no bradycardia. Patient's daughter and updated at bedside. Discharge Exam The patient is awake, alert and oriented 3, obese. HEENT- EOMI, mucous membranes moist. Hearing grossly intact. Heart-normal S1 and S2. No murmurs, rubs or gallops. Lungs-Rhonchi and congestion and right lower lobe, no respiratory distress, no accessory muscle use. Diffuse wheezing. Abdomen-normal bowel sounds and soft. No ascites noted. Non-tender. Extremities- no clubbing, cyanosis. +3 pitting edema BL LE. Rheumatologic-normal range of motion. Psychiatric-normal affect. Discharge Plan Discharge Items Patient Disposition: Home - Self-Care Reason For Visit: CHF WORKUP,DYSPNEA Discharge Diagnosis: CHF exacerbation Non-emergency contact: Primary Care Provider Call non-emergency contact if: you have any medication questions and your symptoms worsen Follow-up/Referrals: Chi Soriano MD [Primary Care Provider] - Diet: Regular Addtl Attending Provider Instructions: Follow up with primary care in 5-7 days Pending Studies at Discharge: No Stand-Alone Forms: [employer], Smoking Cessation Medications and DC Order Prescriptions: New furosemide 40 mg tablet 40 mg PO DAILY Qty: 30 0RF Continued Eliquis 5 mg tablet 5 mg PO BID Qty: 180 3RF atorvastatin [Lipitor] 40 mg Tablet 20 mg PO HS metformin 500 mg Tablet 500 mg PO BID tamsulosin [Flomax] 0.4 mg Capsule 0.4 mg PO HS losartan 25 mg Tablet 12.5 mg PO QAM metoprolol tartrate [Lopressor] 50 mg Tablet 25 mg PO BID calcium carbonate [Calcium 500] 500 mg calcium (1,250 mg) Tablet 500 mg PO HS albuterol sulfate 90 mcg/actuation Hfa Aerosol Inhaler 2 puff INHALATION DIRECTED PRN (Reason: Shortness Of Breath Or Wheezing) cholecalciferol (vitamin D3) [Vitamin D3] 25 mcg (1,000 unit) Capsule 25 mcg PO DAILY fluticasone propion-salmeterol [Advair Diskus] 250-50 mcg/dose Blister With Device 1 inh INHALATION BID ascorbic acid (vitamin C) 500 mg Tablet 500 mg PO DAILY hydrocortisone 2.5 % Lotion 1 applic TOPICAL BID PRN (Reason: Skin Irritation) empagliflozin 25 mg Tablet 25 mg PO QAM Discharge Orders: Discharge Order- CHF (Routine); Ordered 12/26/24 Ordered By: Alecia Keene/Other Patient Handouts: COPD and Heart Disease Admission Data Admit Date/Time: 12/25/24 23:56 Attending Provider: Alecia Munoz Admit Provider: Drake Reyes Primary Care Provider: Chi Soriano Other Providers: Drake Reyes Other Interventions: Discharge Summary Assessment (RN) Last Done: 12/26/24 13:23 Hospital Stay Data Consultations 12/25/24 22:29 ED Decision to Admit Stat Pending Results Patient Have Any Pending Studies at Discharge: No Discharge Instructions Given to Patient (Per Discharging Provider) Follow up with primary care in 5-7 days Total Time Total Time Spent Total Time Spent (In Minutes): 35 min Coding Level of Care Code 81611 INP/OBS DISCH >30 MIN Diagnoses Pleural effusion J90 Edema of both legs R60.0 COPD (chronic obstructive pulmonary disease) J44.9 Bradycardia R00.1 T2DM (type 2 diabetes mellitus) E11.9
[2024-12-26] MEDS ORDERED: TAMSULOSIN HCL 0.4 MG CAP PO SCH (21:00)
[2024-12-26] MEDS ORDERED: ATORVASTATIN 20 MG TAB PO SCH (21:00)
--- NOTE | 2024-12-28 07:54 | Electrocardiogram Report ---
Test Reason : Blood Pressure : */* mmHG Vent. Rate : 65 BPM Atrial Rate : 77 BPM P-R Int : * ms QRS Dur : 182 ms QT Int : 462 ms P-R-T Axes : * 89 96 degrees QTcB Int : 480 ms Ventricular paced rhythm with underlying atrial fibrillation and occasional PVCs Abnormal ECG When compared with ECG of 25-Dec-2024 19:32, No significant change Confirmed by Bonnie Mckeon (T[place]cio) on 12/28/2024 7:54:26 AM Referred By: REFERRED SELF Confirmed By: Bonnie Mckeon
== END 2024-12-26 14:52 | disposition home or self-care (01) | DRG 291 ==
LOC: ED 19:17 → 2S 23:56 → SUATTDRO 23:56 → 2S 12-26 00:30